=== PATIENT | female | born 1970 | race Caucasian/White ===

== ENCOUNTER 2025-09-02 06:00 | Day surgery (SDC) | payer OTHER, SELFPAY ==
[2025-08-31 09:36] LABS: Hematocrit 42.7 % (37-47); Hemoglobin 14.2 g/dL (12.0-15.0); Mean Corp Hgb Conc 33.3 g/dL (32-36); Mean Corpuscular Volume 89.0 fL (81-99); Mean Platelet Vol. 10.7 fl (6.2-12.0); Platelet Count 325 K/mm3 (150-450); RBC Distribution Width CV 13.0 % (11.6-14.6); RBC Distribution Width SD 42.4 fl (35.1-43.9); Red Blood Count 4.80 M/mm3 (4.2-5.4); White Blood Count 6.7 K/mm3 (4.4-11.0)
[2025-08-31 10:22] LABS: Anion Gap 10 (5-15); BUN 12 mg/dL (4-19); BUN/Creat Ratio 22.6 RATIO (10-20); Calcium,Total 9.4 mg/dL (7.6-11.0); Carbon Dioxide 26.0 mmol/L (21.0-32.0); Chloride 106 mmol/L (98-108); Glucose 92 mg/dL (70-99); Potassium 4.2 mmol/L (3.3-5.1)
[2025-09-02] VITALS (7 sets, daily range): BP systolic 100–138; BP diastolic 59–67; PULSE 71–77; RESP 16–18; TEMP 36.3–36.9; O2SAT 93–98; BMI 27.7
--- OUTSIDE RECORDS SUMMARY | 2025-09-02 06:06 | XMS RPT_ITS | CCD ---
Author Organization [facility] Inform ion Partnership [facility] Care Team Providers Care Industrial Sewer Name Role Phone Unavailable Primary Care Provider Unavailmaxine e SHERIDAN NIÑO Referring Unavailable NIÑO, AMY Attending Unavailable JAMSYNE SHERIDAN Referring Unavailable NEYDENVERT KIMBERLY TO Attending Unavail able SHERIDAN NIÑO Attending Unavailable NIÑO, SHERIDAN Referring Unavailable Neyhart-To, Kimberly Referring Unavail able Neyhart-To, Kimberly Attending Unavail able Care Physician, No Primary Primary Care Unava ilable Medications Current Medications Medication Drug Class(es) Dates Sig (Normalized) Sig (Original) cholecalciferol 0.01 mg oral capsule (10 sources) Vitamin D take 1 capsule by mouth once daily cholecalciferol, vitamin D3, (VITAMIN D-3) 10 mcg (400 unit) cap Take 400 Units by mouth once daily. Active Comment on above: Take 400 Units by mo ut once daily. clindamycin 10 mg/ml topical lotion (9 sources) Lincosamide Antibacterial Start: 09-12-2023 Clindamycin Phosphate (CLEOCIN T) 1 % lotion apply to full face TWICE DAILY 09/12/2023 Active Comment on above: apply to full face T WICE DAILY dapsone 0.05 mg/mg topical gel (9 sources) Sulfone Start: 09-12-2023 Dapsone 5 % gel apply to entire face IN THE MORNING and IN THE EVENING 09/12/2023 Active Comment on above: apply to entire face IN THE MORNING and IN THE EVENING Multivitamin capsule (10 sources) take 1 capsule by mouth once daily Multivitamin capsule Take 1 capsule by mouth once daily. Active take 1 capsule by mouth once tristan ly Multivitamin capsule Take 1 capsule by mouth once daily. 0 Active Comment on above: Take 1 capsule by mo uth once daily. nitrofurantoin, macrocrystals 25 mg / nitrofurantoin, monohydrate 75 mg oral capsule (2 sources) Nitrofuran Antibacterial Start: 12-29-19 End: 01-05-20 take 1 capsule by mouth twice daily nitrofurantoin monohydrate and macrocrystal (MACROBID) 100 mg capsule Take 1 capsule by mouth two times a day for 7 days. 14 capsule 0 12/29/2023 01/05/2024 Active Start: 07-26-2022 End: 07-31-2022 take 1 capsule by mouth twice daily nitrofurantoin monohydrate and macrocrystal (MACROBID) 100 mg capsule Indications: Acute cystitis without hematuria Take 1 capsule by mouth twice daily for 5 days. 10 capsule 0 07/26/2022 07/31/2022 Active Comment on above: Take 1 capsule by mo uth twice daily for 5 days. Take 1 capsule by mo uth two times a day for 7 days. Completed/Discontinued Medications Medication Drug Class(es) Dates Sig (Normalized) Sig (Original) miSOPROStol 0.2 mg oral tablet (2 sources) Prostaglandin E1 Analog Start: 06-22-2025 End: 07-28-2025 miSOPROStol (CYTOTEC) 200 mcg tablet Indications: Thickened endometrium Insert 2 tablets vaginally night prior to procedure and 2 tablets morning of procedure. Each dose should be in vagina for 6-8 hours. 4 tablet 06/22/2025 07/28/2025 Discontinued Problems Active Problems Problem Classification Problem Date Documented Date Episodic/Chronic Benign neoplasm of uterus (1 source) Leiomyoma of uterus, unspecified; Translations: [Uterine leiomyoma, unspecified location] Onset: 08-24-2025 Episodic Genitourinary symptoms and ill-defined conditions (2 sources) Blood in urine; Translations: [Hematuria, unspecified] Onset: 06-08-2025 06-08-2025 Episodic Immunizations and screening for infectious disease (6 sources) Patient encounter status; Translations: [Encounter for screening for human papillomavirus (HPV)] Onset: 06-08-2025 06-08-2025 Episodic Nonmalignant breast conditions (2 sources) Breast finding ; Translations: [Dense breast tissue] 06-08-2025 Episodic Other female genital disorders (1 source) Dysplasia of cervix; Translations: [Dysplasia of cervix uteri, unspecified] 01-19-2024 Episodic Other female genital disorders (1 source) Stricture and stenosis of cervix uteri; Translations: [Cervical stenosis (uterine cervix)] Onset: 08-24-2025 Episodic Other screening for suspected conditions (not mental disorders or infectious disease) (5 sources) Endometrium thickened; Translations: [Abnormal findings on diagnostic imaging of other specified body structures] Onset: 07-28-2025 06-22-2025 Chronic Other screening for suspected conditions (not mental disorders or infectious disease) (3 sources) Encounter for screening for malignant neoplasm of cervix; Translations: [Encounter for screening mammogram for malignant neoplasm of breast] Onset: 06-08-2025 Episodic Ovarian cyst (6 sources) Cyst of left ovary; Translations: [Unspecified ovarian cyst, left side] Onset: 06-17-2025 06-08-2025 Episodic Unclassified (2 sources) Patient encounter status 06-08-2025 Unclassified (1 source) Breast finding 06-08-2025 Unclassified (1 source) Dense breast tissue; Translations: [Dense breast tissue] Onset: 06-08-2025 Urinary tract infections (1 source) Acute cystitis; Translations: [Acute cystitis without hematuria] Episodic Past or Other Problems Problem Classification Problem Date Documented Da te Episodic/Chronic Other female genital disorders (6 sources) Abnormal uterine bleeding; Translations: [Abnormal uterine and vaginal bleeding, unspecified] Onset: 07-18-2014 Resolved: 10-22-2017 10-22-2017 Chronic Results Test Name Value Interpretation Reference Range Facility [facility] 08-24-2025 CNOV Office Visit (OBGYWM ) FLETCHER GIMENEZ ([id number]) 1970 F Date Time Provider Department 08/24/25 2:00 PM KIMBERLY BARBOZA OBGYWM During your visit today, we recorded the following information about you: Pulse Blood pressure Weight Height 96/minute 120/72 72.8 kg 1.6 m Kimberly Barboza MD 08/24/2025 2:11 PM Signed Pre-Op History and Physical HPI: The patient is a 55 year old female presenting for pre-operative visit. She is scheduled for Hysteroscopy [facility], for thickened endometrium, stenotic cervix on 09/02/25. Procedure discussed along with risks, benefits and complications. Other alternatives discussed for management. Consent form signed? Yes. PAST MEDICAL HISTORY Diagnosis Date Cervical high risk HPV (human papillomavirus) test positive 12/10/2023 Ovarian cyst Uterine fibroid PAST SURGICAL HISTORY Procedure Laterality Date CERVIX UTERI CONIZA LP ELCTRO EXCI 12/31/2023 COLPOSCOPY CERVIX VAG LOOP ELTRD BX CERVIX 12/22/2023 VAGINOSCOPY 12/2023 Current Outpatient Medications Medication Sig Dispense Refill Dapsone 5 % gel apply to entire face IN THE MORNING and IN THE EVENING Clindamycin Phosphate (CLEOCIN T) 1 % lotion apply to full face TWICE DAILY cholecalciferol, vitamin D3, (VITAMIN D-3) 10 mcg (400 unit) cap Take 400 Units by mouth once daily. Multivitamin capsule Take 1 capsule by mouth once daily. No current facility-administered medications for this visit. ALLERGIES: Patient has no known allergies. PERSONAL HISTORY: SOCIAL HISTORY[1] FAMILY HISTORY: FAMILY HISTORY Problem Relation Age of Onset other (Hypotension) Mother other (Melanoma) Mother 03/2017 Hypertension Father other (ALS) Father Melanoma Father other (benign uterine tumor) Sister No Known Problems Brother REVIEW OF SYMPTOMS: negative except as noted above PHYSICAL EXAMINATION: VITALS: Blood pressure 120/72, pulse 96, height 160 cm (5' 3), weight 72.8 kg (160 lb 9.6 oz), last menstrual period 11/19/2020, SpO2 98%. GENERAL: The patient is well nourished, well hydrated in no acute distress. , The patient is oriented to time, place, and person. NECK: full range of motion LUNGS: Clear to auscultation bilaterally. no wheezes, rhonchi or rales HEART: Regular rate and rhythm, Normal heart sounds, and No murmurs or gallops IMPRESSION: 55yo with thickened endometrium, Stenotic cerix PLAN: Hysteroscopy [facility] Pt has been counseled on risks/benefits and alternatives of surgery including but not limited to anesthesia, bleeding, infection, uterine perforation with subsequent injury to pelvic structures including bowel, bladder, ureters and vessels. Pt wishes to proceed with surgery at this time. Pre and post op instructions I have reviewed and updated past medical and surgical history, medications and allergies Kimberly To MD Medical Decision Making: Problems: Moderate: New problem with uncertain prognosis Risk: Moderate: Decision on minor surgery w/ risk factors Medical Decision Making Level: 4 - Moderate [1] Social History Tobacco Use Smoking status: Never Smokeless tobacco: Never Vaping Use Vaping status: Never Used Substance Use Topics Alcohol use: Never Comment: Rarely Drug use: No Allergies As of Date: 08/24/2025 (No Known Allergies) Date Reviewed: 08/24/2025 Reviewed by: Nadine Alvarenga MA - Fully Assessed Reason for Visit: Pre-Op Visit [1235] Primary Visit Diagnosis:Thickened endometrium [R93.89] Other Visit Diagnoses:Cervical stenosis (uterine cervix) [N88.2] Uterine leiomyoma, unspecified location [D25.9] Pre-op exam [Z01.818] Prescriptions as of 08/24/2025 - Dapsone 5 % gel apply to entire face IN THE MORNING and IN THE EVENING - Clindamycin Phosphate (CLEOCIN T) 1 % lotion apply to full face TWICE DAILY - cholecalciferol, vitamin D3, (VITAMIN D-3) 10 mcg (400 unit) cap Take 400 Units by mouth once daily. - Multivitamin capsule Take 1 capsule by mouth once daily. Problem List As Of Date 08/24/2025 Noted Resolved Abnormal uterine bleeding [N93.9] 07/18/2014 10/22/2017 Encounter Status:Closed by KIMBERLY TO on 08/24/25 [facility] HISTORY PHYSICALon HISTORY PHYSICAL HNO ID: [id number] Author: KIMBERLY BARBOZA MD Service: ? Author Type: Physician Type: H&P Filed: 08/24/2025 14:11 Note Text: Pre-Op History and Physical HPI: The patient is a 55 year old female presenting for pre-operative visit. She is scheduled for Hysteroscopy [facility], for thickened endometrium, stenotic cervix on 09/02/25. Procedure discussed along with risks, benefits and complications. Other alternatives discussed for management. Consent form signed? Yes. PAST MEDICAL HISTORY Diagnosis Date Cervical high risk HPV (human papillomavirus) test positive 12/10/2023 Ovarian cyst Uterine fibroid PAST SURGICAL HISTORY Procedure Laterality Date CERVIX UTERI CONIZA LP ELCTRO EXCI 12/31/2023 COLPOSCOPY CERVIX VAG LOOP ELTRD BX CERVIX 12/22/2023 VAGINOSCOPY 12/2023 Current Outpatient Medications Medication Sig Dispense Refill Dapsone 5 % gel apply to entire face IN THE MORNING and IN THE EVENING Clindamycin Phosphate (CLEOCIN T) 1 % lotion apply to full face TWICE DAILY cholecalciferol, vitamin D3, (VITAMIN D-3) 10 mcg (400 unit) cap Take 400 Units by mouth once daily. Multivitamin capsule Take 1 capsule by mouth once daily. No current facility-administered medications for this visit. ALLERGIES: Patient has no known allergies. PERSONAL HISTORY: SOCIAL HISTORY[1] FAMILY HISTORY: FAMILY HISTORY Problem Relation Age of Onset other (Hypotension) Mother other (Melanoma) Mother 03/2017 Hypertension Father other (ALS) Father Melanoma Father other (benign uterine tumor) Sister No Known Problems Brother REVIEW OF SYMPTOMS: negative except as noted above PHYSICAL EXAMINATION: VITALS: Blood pressure 120/72, pulse 96, height 160 cm (5' 3), weight 72.8 kg (160 lb 9.6 oz), last menstrual period 11/19/2020, SpO2 98%. GENERAL: The patient is well nourished, well hydrated in no acute distress. , The patient is oriented to time, place, and person. NECK: full range of motion LUNGS: Clear to auscultation bilaterally. no wheezes, rhonchi or rales HEART: Regular rate and rhythm, Normal heart sounds, and No murmurs or gallops IMPRESSION: 55yo with thickened endometrium, Stenotic cerix PLAN: Hysteroscopy [facility] Pt has been counseled on risks/benefits and alternatives of surgery including but not limited to anesthesia, bleeding, infection, uterine perforation with subsequent injury to pelvic structures including bowel, bladder, ureters and vessels. Pt wishes to proceed with surgery at this time. Pre and post op instructions I have reviewed and updated past medical and surgical history, medications and allergies Kimberly To MD Medical Decision Making: Problems: Moderate: New problem with uncertain prognosis Risk: Moderate: Decision on minor surgery w/ risk factors Medical Decision Making Level: 4 - Moderate [1] Social History Tobacco Use Smoking status: Never Smokeless tobacco: Never Vaping Use Vaping status: Never Used Substance Use Topics Alcohol use: Never Comment: Rarely Drug use: No [facility] CNOVon 07-28-2025 CNOV Office Visit (OBGYWM ) FLETCHER GIMENEZ ([id number]) 1970 F Date Time Provider Department 07/28/25 3:00 PM SHERIDAN NIÑO OBGYWM During your visit today, we recorded the following information about you: Blood pressure Weight 134/69 72.1 kg Sheridan Niño APRN.CNP 08/02/2025 8:50 PM 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 Whitman is a 55 year old who presents today for an endometrial biopsy for thickening of endometrial lining on ultrasound test: n/a UNIVERSAL PROTOCOL / SAFETY CHECKLIST Procedure to be Performed: Endometrial Biopsy Sign In: A Moment of CARE was completed. Appropriate PPE (Personal Protective Equipment) worn by all providers involved with the procedure. Special equipment utilized tenaculum. Patient/Surrogate Stated/Verified: Patient name, Date of , Relevant allergies, and The intended procedure Time Out: Relevant labs, photos, and/or imaging studies have been reviewed. Intended patient and procedure match the source document(s) (e.g. consent, HANDP, associated studies [imaging, pathology]) match the intended patient and procedure. Consent obtained and matches the intended procedure. Yes. Correct side/site is not applicable. Medications required for this procedure are verified. are not applicable. Fire risk assessed and is not applicable. Implants: are not applicable. Sign Out: Specimens not collected. All instruments, equipment, possible retained foreign bodies are accounted for. Yes. The post-procedure plan of care has been communicated to the patient or surrogate. PROCEDURE: EXTERNAL GENITALIA: Normal in appearance without lesions VAGINA: Normal in appearance without lesions BIOPSY: Speculum placed into the vagina with excellent visualization of the cervix. Cervix cleaned with betadine. Anterior lip of cervix grasped with single toothed tenaculum. Stenotic cervical os. Unable to dilate os. No specimen collected. Procedure Summary: Patient tolerated procedure well. ASSESSMENT: thickening of endometrial lining on ultrasound PLAN: Post-procedure instructions reviewed and written material given to the patient. No specimen collected. Case discussed with Dr To. Recommendation for hysteroscopy [facility]. Message left for pt to call office and surgical worksheet completed. Sheridan Niño APRN.Maco Samaniego LPN 07/28/2025 2:55 PM Signed YOUR RECOVERY After your biopsy you may have: Vaginal bleeding (less than a normal menstrual period) Mild cramping Do NOT put anything in the vagina for 1 week after your endometrial biopsy. This includes: tampons douches and refraining from having sexual intercourse If you have any discomfort, you may take an over the counter pain medication (motrin, advil, ibuprofen, tylenol, etc). If this does not relieve your discomfort, contact the office. It is okay to wear a sanitary pad until the discharge and spotting stops. RISKS Although problems seldom occur with endometrial biopsies, there can be some complications. You may feel faint during and shortly after the procedure as well as have some bleeding after the procedure. There is also a risk of infection after the procedure. These complications are rare and can be easily treated. You should contact you doctor is you have any of the following: Heavy bleeding (more than your normal period) Bleeding with clots Severe abdominal pain Fever (more than 100.4F) Foul smelling vaginal discharge RESULTS We will have the results of your biopsy in 1-2 weeks. If you do not hear the results of your biopsy after 2 weeks, please contact the office for the results. If you have any additional questions or concerns please do not hesitate to contact the office. Referring Provider: SHERIDAN NIÑO [[id number]] Allergies As of Date: 07/28/2025 (No Known Allergies) Date Reviewed: 07/28/2025 Reviewed by: Sheridan Niño APRN.SPRING FORMER MACHINE - Fully Assessed Reason for Visit: Endometrial Biopsy [7501] Primary Visit Diagnosis:Thickened endometrium [R93.89] Order(s):ENDOMETRIAL BIOPSY [[id number]] Order #: [id number] Prescriptions as of 08/02/2025 - Dapsone 5 % gel apply to entire face IN THE MORNING and IN THE EVENING - Clindamycin Phosphate (CLEOCIN T) 1 % lotion apply to full face TWICE DAILY - cholecalciferol, vitamin D3, (VITAMIN D-3) 10 mcg (400 unit) cap Take 400 Units by mouth once daily. - Multivitamin capsule Take 1 capsule by mouth once daily. Problem List As Of Date 07/28/2025 Noted Resolved Abnormal uterine bleeding [N93.9] 07/18/2014 10/22/2017 Other instructions from your clinician: YOUR RECOVERY After your biopsy you may have: Vaginal bleeding (less than a normal menstrual period) Mild cramping Do NOT put anything in the vagina for 1 week after your endometrial biopsy. This includes: tampons douches and refraining from having se (more content not included)... [facility] CNPNon 06-22-2025 RENNYN Telephone (OBGYWM) FLETCHER GIMENEZ ([id number]) 1970 F Date Time Provider Department 06/22/25 SHERIDAN NIÑO During your visit today, we recorded the following information about you: Sheridan Niño APRN.CNP 06/22/2025 4:13 PM Signed Patient notified per phone of follow-up pelvic ultrasound results -fibroid uterus, thickened endometrium measuring 6.8 mm, normal right ovary and left ovary containing 2 cysts as follows: One cyst is multilocular with smooth inner tomas/nonvascular septations and second cyst avascular with smooth borders with solid lesion or endometrioma. This is a change from ultrasound on 12/28/2023. Recommendations were endometrial sampling and follow-up ultrasound in 6 months for O RADS 3. All questions answered. EMB and vaginal Cytotec ordered. Sheridan Niño APRN.SPRING FORMER MACHINE Allergies As of Date: 06/22/2025 (No Known Allergies) Date Reviewed: 06/08/2025 Reviewed by: Sheridan Niño APRN.SPRING FORMER MACHINE - Fully Assessed Reason for Visit: Results [95] Orders [681] New Medication [4091] Primary Visit Diagnosis:Thickened endometrium [R93.89] Other Visit Diagnosis:Ovarian cyst, left [N83.202] Order(s):ENDOMETRIAL BIOPSY [[id number]] Order #: [id number] PELVIC US WHI [[id number]] Order #: [id number]: 1 FUTURE Prescriptions as of 08/05/2025 - Dapsone 5 % gel apply to entire face IN THE MORNING and IN THE EVENING - Clindamycin Phosphate (CLEOCIN T) 1 % lotion apply to full face TWICE DAILY - cholecalciferol, vitamin D3, (VITAMIN D-3) 10 mcg (400 unit) cap Take 400 Units by mouth once daily. - Multivitamin capsule Take 1 capsule by mouth once daily. Problem List As Of Date 06/22/2025 Noted Resolved Abnormal uterine bleeding [N93.9] 07/18/2014 10/22/2017 Prescriptions ordered this encounter Disp Refills Start End MISOPROSTOL 200 MCG TABLET 4 ta* 0 06/22/2025 07/28/2025 Sig: Insert 2 tablets vaginally night prior to procedure and 2 tablets morning of procedure. Each dose should be in vagina for 6-8 hours. Encounter Status:Closed by SHERIDAN INÑO on 06/22/25 [facility] US Pelvison 06-20-2025 Indication Follow-up on ovarian cyst. Follow-up on uterine fibroids Impression Anteverted fibroid uterus that measures 90 mm x 49 mm x 60 mm. The largest fibroids are described below. 1. Size 19 mm x 17 mm x 20 mm. Mean 18.6 mm. Vol 3.340 cm . Anterior. FIGO score: 3 - contacts endometrium; 100% intramural 2. Size 19 mm x 17 mm x 20 mm. Mean 18.6 mm. Vol 3.355 cm . Left mid. FIGO score: 2 - > or equal to 50% intramural 3. Size 19 mm x 20 mm x 20 mm. Mean 19.5 mm. Vol 3.865 cm . Fundal. FIGO score: 2 - > or equal to 50% intramural 4. Size 15 mm x 16 mm x 17 mm. Mean 16.1 mm. Vol 2.159 cm . Anterior. FIGO score: 5 - Subserous > or equal to 50% intramural Endometrium measures 6.8 mm which is abnormally thickened in menopause. Right ovary has a normal appearance and measures 16 mm x 17 mm x 14 mm. Left ovary measures 48 mm x 49 mm x 53 mm and contains two cysts. 1. Size 46 mm x 47 mm x 47 mm multilocular cyst with smooth inner tomas/non-vascular septations. 2. Size 18 mm x 17 mm x 14 mm avascular lesion with smooth borders and isoechoic appearance consistent with solid lesion or endometrioma. No adnexal masses were observed. There is no free fluid visualized in the peritoneal cavity. Comparison to ultrasound on 12/28/2023: Cyst with thin septations measuring 42 x 40 x 44 cm. No solid component (O-RADS 2). Cyst with non simple fluid measuring 23 x 15 x 20 mm. No solid component (O-RADS 2). Recommendations Recommend endometrial sampling and additional evaluation as clinically indicated. O-RADS 3 left ovarian lesions, follow up ultrasound is recommended in 6 months. 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 Postmenopausal: Postmenopausal Menopause 51 yrs Method Transabdominal, transvaginal, 3D ultrasound examination, Color Doppler examination Uterus Uterus: Visualized Uterus position: anteverted Description of uterine malformations: normally shaped Myometrium: heterogeneous Endometrium: thickened Cervix details: cystic lesions identified suggesting superficial Nabothian cysts Uterus length 90 mm Uterus width 60 mm Uterus height 49 mm Uterus Vol 137.2 cm Endometrial thickness, total 6.8 mm Uterine fibroid D1 19 mm Uterine fibroid D2 17 mm Uterine fibroid D3 20 mm Uterine fibroid mean 18.6 mm Uterine fibroid vol 3.340 cm Uterine fibroids findings: Anterior. FIGO score: 3 - contacts endometrium; 100% intramural Uterine fibroid D1 19 mm Uterine fibroid D2 17 mm Uterine fibroid D3 20 mm Uterine fibroid mean 18.6 mm Uterine fibroid vol 3.355 cm Uterine fibroids findings: Left mid. FIGO score: 2 - > or equal to 50% intramural Uterine fibroid D1 19 mm Uterine fibroid D2 20 mm Uterine fibroid D3 20 mm Uterine fibroid mean 19.5 mm Uterine fibroid vol 3.865 cm Uterine fibroids findings: Fundal. FIGO score: 2 - > or equal to 50% intramural Uterine fibroid D1 15 mm Uterine fibroid D2 16 mm Uterine fibroid D3 17 mm Uterine fibroid mean 16.1 mm Uterine fibroid vol 2.159 cm Uterine fibroids findings: Anterior. FIGO score: 5 - Subserous > or equal to 50% intramural Right Ovary Rt ovary: Visualized Rt ovary morphology: postmenopausal atrophic Rt ovary D1 16 mm Rt ovary D2 17 mm Rt ovary D3 14 mm Rt ovary Vol 2.1 cm Left Ovary Lt ovary: Visualized Lt ovary D1 48 mm Lt ovary D2 49 mm Lt ovary D3 53 mm Lt ovary Vol 65.4 cm Lt ovarian cyst(s): Cysts identified Lt ovarian cyst D1 46 mm Lt ovarian cyst D2 47 mm Lt ovarian cyst D3 47 mm Lt ovarian cyst mean 46.7 mm Lt ovarian cyst vol 53.205 cm Lt ovarian cyst findings: Multilocular cyst with smooth inner tomas/non-vascular septations Lt ovarian cyst D1 18 mm Lt ovarian cyst D2 17 mm Lt ovarian cyst D3 14 mm Lt ovarian cyst mean 16.3 mm Lt ovarian cyst vol 2.243 cm Lt ovarian cyst findings: Solid lesion, smooth borders, without vascularity Cul de Sac Visualized. no free fluid visualized Performed By: Angela Gutierrez RDMS Read By: Kely Workman M.D. MATERNAL MEDICINE [facility] AURELIA SCREENING W TOMOon 06-17 AURELIA SCREENING W DEEP * * *Final Report* * * DATE OF EXAM: Jun 17 2025 8:18AM [facility] 0582 - AURELIA SCREENING W DEEP / PROCEDURE REASON: multiple diagnoses * * * * Physician Interpretation * * * * RESULT: [place] [address] #[id number] - AURELIA SCREENING W DEEP HISTORY: 55 year-old patient presents for screening. Patient is asymptomatic in both breasts. Patient states no personal history of breast cancer. COMPARISON STUDIES: The present examination has been compared to prior imaging studies dated 10/22/2017 (mammogram), 11/19/2018 (mammogram), 07/25/2021 (mammogram) and 01/01/2024 (mammogram). MAMMOGRAM TECHNIQUE: The study was acquired using full field digital technology and interpreted from soft copy. Digital Breast Tomosynthesis (DBT) images were obtained and used to assist in the interpretation of this examination. MAMMOGRAM FINDINGS: The breasts are heterogeneously dense, which may obscure small masses. No suspicious masses, calcifications or other abnormalities are seen in either breast. There are no significant interval changes. IMPRESSION: There is no mammographic evidence of malignancy in either breast. Routine screening mammogram is recommended. Annual mammogram will be due in 1 year. BI-RADS Category 1: Negative RISK: Based on the Tyrer-Cuzick (TC) risk assessment model, this patient has a 9.7% lifetime risk of developing breast cancer, meaning they are at average risk for developing breast cancer. However, this is only an estimate based on available history provided on the patient's questionnaire. We encourage all patients to talk with their providers about these results, further recommendations for managing breast health, and appropriate supplemental screening options if the patient has dense breast tissue. Interpreting Radiologist: Annelise Hill M.D. Electronically signed on: 06/20/2025 Cook Taco: RICHARD Transcribe Date/Time: Jun 17 2025 8:05A Dictated by: ANNELISE HILL MD This examination was interpreted and the report reviewed and electronically signed by: ANNELISE HILL MD on Jun 20 2025 7:54AM EST [id number] [facility] US Pelvison 06-17-2025 Radiology Study observation (narrative) [facility] [place] [facility] CNOVon 06-08-2025 CNOV Office Visit (OBGYWM ) FLETCHER GIMENEZ ([id number]) 1970 F Date Time Provider Department 06/08/25 3:30 PM SHERIDAN NIÑO OBPAPOWCass During your visit today, we recorded the following information about you: Blood pressure Weight Height 120/71 72.1 kg 1.585 m Sheridan Niño APRN.SPRING FORMER MACHINE 06/08/2025 4:39 PM 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 Fletcher is a 55 year old who presents for an annual gynecologic exam without complaints. Postmenopausal: Yes since age 51 HRT use: No. Menopause symptoms: None Time with current partner: 33 years Number of lifetime partners: 3 control frequency: Never HPV vaccine: No; Last pap smear: 12/10/2023 normal HPV: 12/10/2023 positive high risk other History of abnormal pap: Yes, history of abnormal PAP smears Leep biopsy: Yes: 12/31/2023 benign cervix and endocervix tissue Colposcopy 12/22/2023 benign ; ECC CIN2 Bothersome pelvic pain: No Last mammogram: 2023 normal dense History of abnormal mammogram: No OB History Gravida2 Para2 Term0 Preterm0 AB0 Living2 SAB0 IAB0 Ectopic0 Multiple0 Live Births0 Dampener History LMP: 11/19/2020, Postmenopausal Age at Menarche: 8 Age at First : Age at Menopause: Dampener History Comments: Sexual Activity: Yes; Male; had vasectomy Contraception: Vasectomy PAST MEDICAL HISTORY Diagnosis Date Cervical high risk HPV (human papillomavirus) test positive 12/10/2023 PAST SURGICAL HISTORY Procedure Laterality Date VAGINOSCOPY 12/2023 FAMILY HISTORY Problem Relation Age of Onset other (Hypotension) Mother other (Melanoma) Mother 03/2017 Hypertension Father other (ALS) Father Melanoma Father other (benign uterine tumor) Sister No Known Problems Brother SOCIAL HISTORY Social History Tobacco Use Smoking status: Never Smokeless tobacco: Never Vaping Use Vaping status: Never Used Substance Use Topics Alcohol use: Never Comment: Rarely Drug use: No REVIEW OF SYSTEMS Abdomen: No abdominal pain, nausea, vomiting, diarrhea, or constipation. No bloating, early satiety, indigestion, or increased flatulence. Bladder: No dysuria, gross hematuria, urinary frequency, urinary urgency, or incontinence Breast: No breast lumps, nipple d/c, overlying skin changes, redness or skin retraction Allergies and current medication updated:Yes SENSITIVE EXAM: The sensitive examination was discussed with the Patient or Patient's Authorized Home Service Director. As applicable, any other physician, advance practice provider, medical student, or other health professional student that will be observing or involved in the sensitive examination for educational or training purposes was discussed with the Patient or Authorized Home Service Director. The Patient or Authorized Home Service Director has agreed to proceed with the sensitive examination. (Sensitive examination includes inspection and/or palpation of the breasts, pelvis, prostate and anorectal regions). EXAM: BP 120/71 Ht 5' 2.402 (1.59m) Wt 159 lb (72.1kg) LMP 11/19/2020 BMI 28.71 kg/(m2). GENERAL: pleasant, female in no apparent distress HEENT: Normocephalic, atraumatic, mucus membranes moist, and no lesions NECK: Supple, full range of motion, no adenopathy, and thyroid normal DERMATOLOGY: Normal, without lesions, non-icteric, and non-hirsute BREAST: soft, non-tender, symmetric, no dominant mass, normal nipple-areolar complex, no lymphadenopathy, and no nipple discharge CHEST: Normal inspiratory effort ABDOMEN: soft, non-tender, and no masses PELVIC: external genitalia normal, normal Bartholin's glands, urethra, Hoxie's glands, no vulvar lesions, no cervical lesions, good vaginal support, physiologic discharge present, normal appearing perineal body and perianal region BIMANUAL: uterus normal size, shape and consistency, no adnexal masses, and non-tender RECTOVAGINAL: deferred. NEURO: alert and oriented x3,exam grossly non-focal EXTREMITIES: normal ASSESSMENT/PLAN: 1) Health maintenance: Pap/HPV up to date. - Discussed patient's medical history, including previous LEEP procedure and current medications. - No current symptoms of pelvic pain or stress incontinence. Mammogram ordered Mammogram up to date Nutrition, exercise and routine health maintenance exams reviewed. Calcium/Vitamin D supplementation information provided. Colon cancer screening: Cologuard ordered 2. Ovarian cyst, left (N83.202) - Previous pelvic ultrasound in December 2023 showed a benign-appearing left ovarian cyst with thin septation, classified as O-RADS 2. - Ordered repeat pelvic ultrasound to monitor the cyst. - Patient to schedule the ultrasound before leaving today. 3. Hematuria, unspecified type (R31.9) - Urinalysis today showed trace hematuria and ketones, indicating possible dehydration. - Previous urinalysis on January 19 showed (more content not included)... [facility] HIGH RISK HUMAN PAPILLOMA ISA (HPV), PCR FOR DETECTION AND GENOTYPINGon 06-08-2025 HPV 16 Ag Ql (Unsp spec) Not detected Normal Not detected [facility] Comment on above: Order Comment: Speci men Type: FLUID SPECIMEN Ordering Facility: [facility] Address: [address] [place] [address] Performed By: #### H PVHRT #### [facility] CLIA [id number] [address] [place] [address] [place] HPV 18 Ag Ql (Unsp spec) Not detected Normal Not detected [facility] Comment on above: Order Comment: Speci men Type: FLUID SPECIMEN Ordering Facility: [facility] Address: [address] [place] [address] Performed By: #### H PVHRT #### [facility] CLIA [id number] [address] [place] [address] [place] HPV 31+33+35+39+45+51+52 +56+58+59+66+68 DNA PRASANNA+probe Ql (Cvx) Not detected Normal Not detected [facility] Comment on above: Order Comment: Speci men Type: FLUID SPECIMEN Ordering Facility: [facility] Address: [address] [place] [address] Result Comment: High Risk HPV Other Type includes HPV types 31, 33, 35, 39, 45, 51, 52, 56, 58, 59, 66 and 68. Performed By: #### H PVHRT #### [facility] CLIA [id number] [address] [place] [address] [place] PAP TESTon 06-08-2025 ADEQUACY Satisfactory for interpretation. [facility] Comment on above: Order Comment: Speci men Type: FLUID SPECIMEN Ordering Facility: [facility] Address: [address] [place] [address] Performed By: #### L [id number] #### [facility] CLIA [id number] [address] [place] [address] [place] CASE REPORT [facility] Comment on above: Order Comment: Speci men Type: FLUID SPECIMEN Ordering Facility: [facility] Address: [address] [place] [address] Result Comment: Gyne cologic Cytology Report Case: [id number] Authorizing Provider: Sheridan Niño APRN.SPRING FORMER MACHINE Collected: 06/08/2025 04:21 PM Ordering Location: OB/Gynecology Received: 06/09/2025 07:22 AM First Screen: Gisel Bradley, CT, ASCP Rescreen: Delmis Wallace, CT, ASCP Specimen: Pap Test, ThinPrep, Cervix Performed By: #### L [id number] #### [facility] CLIA [id number] [address] [place] [address] [place] CLINICAL HISTORY, CYTOLOGY, ENTERPRISE DATA ARCHITECT Post Menopausal [facility] Comment on above: Order Comment: Speci men Type: FLUID SPECIMEN Ordering Facility: [facility] Address: [address] [place] [address] Result Comment: Prev ious LEEP Previous Abnormal Pap Performed By: #### L [id number] #### [facility] CLIA [id number] [address] [place] [address] [place] CYTOLOGY PAP OTHER INTERPRETATION Atrophic specimen. [facility] Comment on above: Order Comment: Speci men Type: FLUID SPECIMEN Ordering Facility: [facility] Address: [address] [place] [address] Performed By: #### L [id number] #### [facility] CLIA [id number] [address] [place] [address] [place] FINAL PERFORMING LAB Normal [facility] Comment on above: Order Comment: Speci men Type: FLUID SPECIMEN Ordering Facility: [facility] Address: [address] [place] [address] Result Comment: Tech nical component, k 8 school principal screening performed at: [facility], [address] [place] [address] CLIA: [id number] Diagnostic interpretation performed at: [facility], [address] [place] [address] CLIA# [id number] Sales Manager [place]: Steven Love MD Performed By: #### L [id number] #### [facility] CLIA [id number] [address] [place], [place] [id number] [place] INTERPRETATION, CYTOLOGY, ENTERPRISE DATA ARCHITECT [facility] Comment on above: Order Comment: Speci men Type: FLUID SPECIMEN Ordering Facility: [facility] Address: [address] [place] [address] Result Comment: Nega tive for intraepithelial lesion or malignancy. at 1403 EDT Performed By: #### L [id number] #### [facility] CLIA [id number] [address] [place] [address] [place] PAP DISCLAIMER COMMENT The Pap Smear is a screening test for cervical cancer. False negative results occur with all screening tests, emphasizing the need for rescreening at recommended intervals, and clinical correlation. [facility] Comment on above: Order Comment: Speci men Type: FLUID SPECIMEN Ordering Facility: [facility] Address: [address] [place] [address] Performed By: #### L [id number] #### [facility] CLIA [id number] [address] [place] [address] [place] PAP GRAIN ELEVATOR MAN COMMENT This specimen has be en analyzed by the FDA-approved [employer]iosity[place]TM System, which uses digital imaging and an enhanced artificial intelligence image analysis algorithm to identify sol of interest on the microscopic slide, to assist the associate dean and pathologist in evaluating cells on ThinPrep Pap tests. Following analysis, sol of interest on the microscopic slide selected by the algorithm are reviewed by a associate dean. If a sample requires hierarchical review, the pathologist will review the same sol of interest selected by the algorithm prior to final interpretation. [facility] Comment on above: Order Comment: Speci men Type: FLUID SPECIMEN Ordering Facility: [facility] Address: [address] [place] [address] Performed By: #### L [id number] #### [facility] CLIA [id number] [address] [place], [place] [id number] [place] UA DIP, URINE (POC)on 2024 BILIRUBIN UA (POCT) Negative Negative [facility] CLARITY UA (POCT) Clear [facility] COLOR UA (POCT) Yellow [facility] GLUCOSE UA (POCT) Negative Negative mg/dL [facility] Hemoglobin Ql (U) Trace-intact Abnormal Negative [facility] Interpretation and review of laboratory results Abnormal [facility] KETONE UA (POCT) 40 mg/dL Abnormal Negative [facility] LEUKOCYTES UA (POCT) Negative Negative [facility] NITRITE UA (POCT) Negative Negative [facility] PH UA (POCT) 5.5 4.5 - 8.0 [facility] [place] [facility] Protein Ql (U) Negative Negative mg/dL [facility] SPECIFIC GRAVITY UA (POCT) 1.02 1.005 - 1.030 [facility] UROBILINOGEN UA (POCT) 0.2 Normal E.U./dL [facility] Location:[facility], [address], [place], [id number] [place] [address] POINT OF CARE [facility] UA DIP, URINE (POC)on 2023 BILIRUBIN UA (POCT) Negative Negative [facility] CLARITY UA (POCT) Clear [facility] nd [facility] COLOR UA (POCT) Yellow [facility] [place] [facility] GLUCOSE UA (POCT) Negative Negative mg/dL [facility] Hemoglobin Ql (U) Negative Negative [facility] KETONE UA (POCT) Negative Negative mg/dL [facility] LEUKOCYTES UA (POCT) Trace Abnormal Negative [facility] NITRITE UA (POCT) Negative Negative [facility] PH UA (POCT) 7.0 4.5 - 8.0 [facility] [place] [facility] Protein Ql (U) Negative Negative mg/dL [facility] SPECIFIC GRAVITY UA (POCT) 1.010 1.005 - 1.030 [facility] UROBILINOGEN UA (POCT) 0.2 E.U./dL Normal E.U./dL [facility] Vital Signs Date Time Vital Sign Value Performing Clinician Sanjay rice 07-28-2025 15:42-0400 Diastolic blood pressure 69 mm[Hg] Sheridan Niño APRN.SPRING FORMER MACHINE Work Phone: [facility] Comment on above: post emb 07-28-2025 15:42-0400 Systolic blood pressure 134 mm[Hg] Sheridan Niño SUPERVISOR KNITTING.SPRING FORMER MACHINE Work Phone: [facility] Comment on above: post emb 07-28-2025 14:58-0400 Body mass index (BMI) [Ratio] 28.71 kg/m2 Sheridan Mendozahrie SUPERVISOR KNITTING.SPRING FORMER MACHINE Work Phone: [facility] [place] [facility] 07-28-2025 14:58-0400 Body weight 72.12 kg Sheridan Mendozahrie SUPERVISOR KNITTING.SPRING FORMER MACHINE Work Phone: [facility] 06-08-2025 15:33-0400 Body height 158.5 cm Sheridan Niño SUPERVISOR KNITTING.SPRING FORMER MACHINE Work Phone: [facility] [place] [facility] 06-08-2025 15:33-0400 Body mass index (BMI) [Ratio] 28.71 kg/m2 Sheridan Niño SUPERVISOR KNITTING.SPRING FORMER MACHINE Work Phone: [facility] [place] [facility] 06-08-2025 15:33-0400 Body weight 72.12 kg Sheridan Niño SUPERVISOR KNITTING.SPRING FORMER MACHINE Work Phone: [facility] [place] [facility] 06-08-2025 15:33-0400 Diastolic blood pressure 71 mm[Hg] Sheridan Niño SUPERVISOR KNITTING.SPRING FORMER MACHINE Work Phone: [facility] 06-08-2025 15:33-0400 Systolic blood pressure 120 mm[Hg] Sheridan Mendzoahrie SUPERVISOR KNITTING.SPRING FORMER MACHINE Work Phone: [facility] 01-19-2024 08:11-0500 Body weight 72.03 kg Grey Venegas MD Work Phone: [facility] [place] [facility] 01-19-2024 08:11-0500 Diastolic blood pressure 66 mm[Hg] Grey Venegas MD Work Phone: [facility] [place] [facility] 01-19-2024 08:11-0500 Systolic blood pressure 110 mm[Hg] Grey Venegas MD Work Phone: [facility] [place] [facility] Encounters Encounter Date Encounter Type Care Provider Facility Start: 09-02-2025 ambulatory Kimberly Sainz Facility:[facility] Start: 08-26-2025 Encounter for other preprocedural examination Kimberly [facility] Start: 08-24-2025 End: 08-24-2025 ambulatory KIMBERLY MARIAH TO Facility:[facility] Start: 08-24-2025 Encounter for other preprocedural examination KIMBERLY MARIAH TO [facility] Start: 07-28-2025 End: 07-28-2025 Patient encounter procedure Sheridan Niño APRN.CNP Work Phone: OB/Gynecology Comment on above: Thickened endometriu m (Primary Dx) Start: 07-28-2025 End: 07-28-2025 ambulatory SHERIDAN NIÑO Facility:[facility] Start: 06-22-2025 End: 06-22-2025 Telephone encounter Sheridan Niño APRN.CNP Work Phone: OB/Gynecology Comment on above: Results; Orders; New Medication Start: 06-17-2025 End: 06-17-2025 ambulatory Turbo Operator [employer] Work Phone: OB/Gynecology Start: 06-17-2025 End: 06-17-2025 Patient encounter procedure Us Tech 1 [facility] OB/Gynecology Start: 06-17-2025 End: 06-17-2025 ambulatory SHERIDAN NIÑO Facility:[facility] Start: 06-17-2025 End: 06-17-2025 Patient encounter status [facility] Start: 06-17-2025 End: 06-17-2025 Subsequent hospital visit by physician Screen Mammo [facility] Comment on above: Encounter for gyneco logical examination (general) (routine) without abnormal findings [Z01.419] Start: 06-15-2025 End: 08-15-2025 Follow-up encounter Sheridan Niño APRN.CNP Work Phone: OB/Gynecology Start: 06-08-2025 End: 06-08-2025 Patient encounter procedure Sheridan Niño APRN.CNP Work Phone: OB/Gynecology Comment on above: Encounter for gyneco logical examination (general) (routine) without abnormal findings (Primary Dx); Ovarian cyst, left; Hematuria, unspecified type; Pap smear for cervical cancer screening; Encounter for screening mammogram for breast cancer; Encounter for screening for human papillomavirus (HPV); Dense breast tissue; Screen for colon cancer Start: 06-08-2025 End: 06-08-2025 Patient encounter status Sheridan Niño APRN.CNP Work Phone: [facility] [place] [facility] Work Phone: Start: 06-08-2025 End: 06-08-2025 ambulatory SHERIDAN NIÑO Facility:[facility] Start: 06-08-2025 Encounter for gynecological examination (general) (routine) without abnormal findings SHERIDAN NIÑO [facility] Start: 01-19-2024 End: 01-19-2024 Patient encounter procedure Grey Venegas MD Work Phone: OB/Gynecology Comment on above: Cervical dysplasia ( Primary Dx) Start: 01-07-2024 ambulatory Grey pereira MD Work Phone: OB/Gynecology Comment on above: result Start: 01-07-2024 E-mail encounter fro m caregiver Grey Venegas MD Work Phone: [facility] Start: 01-01-2024 Documentation procedure Mammog aileen Coordinator [facility] Start: 01-01-2024 Letter encounter Mammography Coordinator [facility] [place] [facility] Department Start: 07-26-2022 End: 07-26-2022 ambulatory Shi Manning APRN.CNP Work Phone: Telemedicine Comment on above: Acute cystitis witho ut hematuria (Primary Dx) Start: 07-26-2022 End: 07-26-2022 Telemedicine consultation with patient Shi Stoutmalachi CHILDS Work Phone: [facility] Procedures Date Procedure Procedure Detail Performing Clinician Start: 06-17-2025 Us pelvic nonobstetr ic real-time image complete Sheridan Niño APRN.CNP Work Phone: Start: 06-08-2025 Urnls dip stick/tabl et rgnt auto w/o microscopy Sheridan Niño APRN.CNP Work Phone: Start: 01-19-2024 Urnls dip stick/tabl et rgnt auto w/o microscopy Grey Venegas MD Work Phone: Start: 07-25-2021 Mammography Shi Salinas jonah HONEYCUTT.SPRING FORMER MACHINE Work Phone: Start: 07-19-2014 Lipid 1996 panel - S rosita or Plasma Mammography Coordinator Plan of Treatment Date Care Activity Detail Author Start: 07-16-2032 Urine microalbumin profile DTaP,Tdap,Td Vaccine (2 - Td or Tdap) [facility] [place] [facility] Start: 12-10-2028 Screening for malign ant neoplasm of cervix [facility] [place] [facility] Start: 06-27-2028 Screening for malign ant neoplasm of colon [facility] [place] [facility] Start: 12-26-2026 Diabetes Screening Diabetes Screenin g [facility] [place] [facility] Start: 06-17-2026 Screening for malign ant neoplasm of breast Mammogram Screening [facility] [place] [facility] Start: 06-08-2026 Screening for malign ant neoplasm of cervix Cervical Cancer Screening [facility] [place] [facility] Start: 12-23-2025 End: 06-22-2026 US Pelvis PELVIC [facility] Imaging Routine Ovarian cyst, left Expected: 12/23/2025, Expires: 06/22/2026 [facility] [place] [facility] Comment on above: Expected: 12/23/2025 , Expires: 06/22/2026 Start: 08-24-2025 End: 08-24-2025 Patient encounter procedure 08/24/2025 2:00 PM EDT Office Visit OB/Gynecology [address] [place] [address] Kimberly Barboza MD [address] [place] [address] surgery 09/02 OB/Gynecology Comment on above: surgery 09/02 Start: 08-01-2025 Influenza vaccination Influenza Vacc ine (#1) [facility] [place] [facility] Start: 06-17-2025 End: 06-17-2025 ambulatory 06/17/2025 9:30 AM EDT Procedure OB/Gynecology [address] [place] [id number] Remote, Tur[employer] [address] [place] [address] Ovarian cyst, left [N83.202] OB/Gynecology Comment on above: Ovarian cyst, left [ N83.202] Start: 06-17-2025 End: 06-17-2025 Patient encounter procedure 06/17/2025 8:10 AM EDT Appointment Mammogram [address] [place] [address] Encounter for gynecological examination (general) (routine) without abnormal findings [Z01.419]; Encounter for screening mammogram for breast cancer [Z12.31]; Dense breast tissue [R92.30] Mammogram Comment on above: Encounter for gyneco logical examination (general) (routine) without abnormal findings [Z01.419]; Encounter for screening mammogram for breast cancer [Z12.31]; Dense breast tissue [R92.30] Start: 06-08-2025 End: 06-08-2026 US Pelvis PELVIC US [facility] Anc Imaging Routine Ovarian cyst, left Expected: 06/08/2025, Expires: 06/08/2026 [facility] [place] [facility] Comment on above: Expected: 06/08/2025 , Expires: 06/08/2026 Start: 01-01-2025 Screening for malign ant neoplasm of breast Mammogram Screening [facility] [place] [facility] Start: 12-10-2024 Screening for malign ant neoplasm of cervix Cervical Cancer Screening [facility] [place] [facility] Start: 08-01-2024 Covid-19 Vaccine () Covid-19 Vaccine () [facility] [place] [facility] Start: 12-01-2023 Depression Assessment Depression Ass essment [facility] [place] [facility] Start: 08-01-2023 Covid-19 Vaccine () Covid-19 Vaccine () [facility] [place] [facility] Start: 08-01-2023 Influenza vaccination Influenza Vacc ine (#1) [facility] [place] [facility] Start: 10-22-2022 HPV TESTING HPV TESTING [facility] [place] [facility] Start: 10-22-2022 PAP TESTING PAP TESTING [facility] [place] [facility] Start: 08-01-2022 Influenza vaccination INFLUENZA (#1) [facility] [place] [facility] Start: 07-25-2022 Mammography MAMMOGRAM [facility] [place] [facility] Start: 08-21-2021 COVID-19 VACCINE (3 - Booster for Moderna series) COVID-19 VACCINE (3 - Booster for Moderna series) [facility] [place] [facility] Start: 07-19-2019 Lipid panel Lipid Screening [facility] Start: 07-19-2019 LIPID SCREEN LIPID SCREEN [facility] [place] Start: 2018 Pneumococcal Vaccine : 50+ (1 of 1 - PCV) Pneumococcal Vaccine: 50+ (1 of 1 - PCV) [facility] [place] Start: 2018 SHINGRIX VACCINE (1 of 2) SHINGRIX VACCINE (1 of 2) [facility] [place] [facility] Start: 07-19-2017 DIABETES SCREEN [facility]EN [facility] [facility] Start: 2013 COLOGUARD (FIT-DNA) COLOGUARD (FIT-D NA) [facility] Start: 2013 Colonoscopy COLONOSCOPY [facility] Start: 2013 COLORECTAL CANCER SCREENING COLORECTAL CANCER SCREENING [facility] Start: [address] COLONOGRAPHY [facility] Start: 2013 FECAL OCCULT BLOOD FECAL OCCULT BLOO D [facility] Start: 2013 Screening for malign ant neoplasm of colon [facility] Start: 2013 SIGMOIDOSCOPY SIGMOIDOSCOPY [facility] Start: 1987 Hepatitis B Vaccine (1 of 3 - 19+ 3-dose series) Hepatitis B Vaccine (1 of 3 - 19+ 3-dose series) [facility] Start: 1987 Urine microalbumin profile DTAP,TDAP,TD (1 - Tdap) [facility] Start: 1986 Anxiety Screening Anxiety Screening [facility] Start: 1986 Depression Screening Depression Scre ening [facility] Start: 1986 HEPATITIS C SCREENING HEPATITIS C [facility] Start: 1986 Hepatitis C screening Hepatitis C [facility] Start: 1986 HIV SCREENING HIV SCREENING [facility] Start: 1986 HIV screening HIV Screening [facility] Start: 1980 Adult depression screening assessment DEPRESSION SCREENING [facility] Start: 1968 HEPATITIS B (1 of 3 - 3-dose series) HEPATITIS B (1 of 3 - 3-dose series) [facility] Start: 1968 Hepatitis B Vaccine (1 of 3 - 3-dose series) Hepatitis B Vaccine (1 of 3 - 3-dose series) [facility] COLOGUARD COLOGUARD Lab Evelyn mcelroy Screen for colon cancer Ordered: 06/08/2025 [facility] Comment on above: Ordered: 06/08/2025 End: 07-08-2026 DBT Breast - bilateral screening AURELIA SCREENING W DEEP Radiology Routine Encounter for gynecological examination (general) (routine) without abnormal findings Encounter for screening mammogram for breast cancer Dense breast tissue 1 Occurrences starting 06/08/2025 until 07/08/[address] [facility] Work Phone: Comment on above: 1 Occurrences starti ng 06/08/2025 until 07/08/2026 DBT Breast - bilater al screening AURELIA SCREENING W DEEP Radiology Routine Encounter for gynecological examination (general) (routine) without abnormal findings Encounter for screening mammogram for breast cancer Dense breast tissue 06/17/2025 8:18 AM EDT [facility] Work Phone: Endometrial bx w/wo endocervix bx w/o dilat spx ENDOMETRIAL BIOPSY Procedures Routine Thickened endometrium Ordered: 06/22/[address] [facility] Work Phone: Comment on above: Ordered: 06/22/2025 Endometrial bx w/wo endocervix bx w/o dilat spx ENDOMETRIAL BIOPSY Procedures Routine Thickened endometrium Ordered: 07/28/[address] [facility] Work Phone: Comment on above: Ordered: 07/28/2025 PAP TEST PAP TEST Lab Griselda gao Encounter for gynecological examination (general) (routine) without abnormal findings Encounter for screening for human papillomavirus (HPV) Pap smear for cervical cancer screening Ordered: 06/08/2025 [facility] Comment on above: Ordered: 06/08/2025 [facility] Immunizations Immunization Date Immunization Notes Care Provider Ruma ceja 09-14-2021 influenza virus vaccine, unspecified formulation Mammography Coordinator [facility] Payers Date Payer Category Payer Self-pay 2019 Private Health Insurance [employer] PPO [id number] 2019 Unknown [id number] 2019 Unknown [id number] Unknown [id number] Social History Date Type Detail Facility Start: 07-18-2014 End: 12-10-2023 Tobacco smoking status ILIS Never smoked tobacco [facility] Work Phone: Start: 07-18-2014 End: 12-10-2023 Tobacco use and exposure Smokeless tobacco non-user [facility] Work Phone: Start: 07-25-2021 End: 06-08-2025 Alcohol intake Lifetime non-drinker (finding) [facility] Start: 07-25-2021 History SDOH Alcohol Frequency 1 [facility] Start: 07-18-2014 History SDOH Alcohol Comment Rarely [facility] Start: 1970 Sex Assigned At Not on file [facility] Start: 12-25-2023 End: 12-31-2023 History of Social function [facility] Start: 12-25-2023 End: 12-31-2023 Tobacco use panel [facility] Start: 11-01-2012 National Score (1-10 0), lower number is lower risk 58 [facility] Functional Status Date Assessment Result Facility 07-29-2014 Are you deaf, or do you have serious difficulty hearing No 07/29/2014 10:14 AM Estefany Michael LPN No [facility] 07-29-2014 Are you blind, or do you have serious difficulty seeing, even when wearing glasses No 07/29/2014 10:14 AM EDT Estefany Claire LPN No [facility] 07-29-2014 Do you have serious difficulty walking or climbing stairs No 07/29/2014 10:14 AM EDT Estefany Claire LPN No [facility] 07-29-2014 Do you have difficul ty dressing or bathing No 07/29/2014 10:14 AM EDT Estefany Claire LPN No [facility] 07-29-2014 Because of a physica l, mental, or emotional condition, do you have difficulty doing errands alone such as visiting a physician's office or shopping No 07/29/2014 10:14 AM EDT Estefany Claire LPN No [facility] Mental Status Date Assessment Result Facility 07-29-2014 Because of a physica l, mental, or emotional condition, do you have serious difficulty concentrating, remembering, or making decisions No 07/29/2014 10:14 AM EDT Estefany Claire LPN No [facility] Clinical Notes 07-18-2014 to 07-28-2025 Patient InstructionsSheridan Niño APRN.[facility] - 07/28/2025 2:37 PM EDTTelephone Encounter - Sheridan Niño APRN.[facility] - 06/22/2025 4:05 PM Kely Shirley MD - 06/20/2025 1:24 PM EDT Note Date & Type Note Facility 07-28-2025 Instructions Maco Murphy LPN - 07/28/2025 2:55 PM EDT YOUR RECOVERY After your biopsy you may have: Vaginal bleeding (less than a normal menstrual period) Mild cramping Do NOT put anything in the vagina for 1 week after your endometrial biopsy. This includes: tampons douches and refraining from having sexual intercourse If you have any discomfort, you may take an over the counter pain medication (motrin, advil, ibuprofen, tylenol, etc). If this does not relieve your discomfort, contact the office. It is okay to wear a sanitary pad until the discharge and spotting stops. RISKS Although problems seldom occur with endometrial biopsies, there can be some complications. You may feel faint during and shortly after the procedure as well as have some bleeding after the procedure. There is also a risk of infection after the procedure. These complications are rare and can be easily treated. You should contact you doctor is you have any of the following: Heavy bleeding (more than your normal period) Bleeding with clots Severe abdominal pain Fever (more than 100.4F) Foul smelling vaginal discharge RESULTS We will have the results of your biopsy in 1-2 weeks. If you do not hear the results of your biopsy after 2 weeks, please contact the office for the results. If you have any additional questions or concerns please do not hesitate to contact the office. documented in this encounter [facility] 07-28-2025 Note HNO ID: [id number] Author: SHERIDAN NIÑO APRN.[employer] Service: ? Author Type: Nurse Practitioner Type: Progress Notes Filed: 08/02/2025 20:50 Note Text: Industrial Sweeper Cleaner offered: Patient declinesJackelin Whitman is a 55 year old who presents today for an endometrial biopsy for thickening of endometrial lining on ultrasound test: n/a UNIVERSAL PROTOCOL / SAFETY CHECKLIST Procedure to be Performed: Endometrial Biopsy Sign In: A Moment of CARE was completed. Appropriate PPE (Personal Protective Equipment) worn by all providers involved with the procedure. Special equipment utilized tenaculum. Patient/Surrogate Stated/Verified: Patient name, Date of , Relevant allergies, and The intended procedure Time Out: Relevant labs, photos, and/or imaging studies have been reviewed. Intended patient and procedure match the source document(s) (e.g. consent, HANDP, associated studies [imaging, pathology]) match the intended patient and procedure. Consent obtained and matches the intended procedure. Yes. Correct side/site is not applicable. Medications required for this procedure are verified. are not applicable. Fire risk assessed and is not applicable. Implants: are not applicable. Sign Out: Specimens not collected. All instruments, equipment, possible retained foreign bodies are accounted for. Yes. The post-procedure plan of care has been communicated to the patient or surrogate. PROCEDURE: EXTERNAL GENITALIA: Normal in appearance without lesions VAGINA: Normal in appearance without lesions BIOPSY: Speculum placed into the vagina with excellent visualization of the cervix. Cervix cleaned with betadine. Anterior lip of cervix grasped with single toothed tenaculum. Stenotic cervical os. Unable to dilate os. No specimen collected. Procedure Summary: Patient tolerated procedure well. ASSESSMENT: thickening of endometrial lining on ultrasound PLAN: Post-procedure instructions reviewed and written material given to the patient. No specimen collected. Case discussed with Dr To. Recommendation for hysteroscopy DANDC. Message left for pt to call office and surgical worksheet completed. Sheridan Niño APRN.[facility] 07-28-2025 History of Presen t illness Narrative Industrial 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 Fletcher is a 55 year old who presents today for an endometrial biopsy for thickening of endometrial lining on ultrasound test: n/a UNIVERSAL PROTOCOL / SAFETY CHECKLIST Procedure to be Performed: Endometrial Biopsy Sign In: A Moment of CARE was completed. Appropriate PPE (Personal Protective Equipment) worn by all providers involved with the procedure. Special equipment utilized tenaculum. Patient/Surrogate Stated/Verified: Patient name, Date of , Relevant allergies, and The intended procedure Time Out: Relevant labs, photos, and/or imaging studies have been reviewed. Intended patient and procedure match the source document(s) (e.g. consent, H&P, associated studies [imaging, pathology]) match the intended patient and procedure. Consent obtained and matches the intended procedure. Yes. Correct side/site is not applicable. Medications required for this procedure are verified. are not applicable. Fire risk assessed and is not applicable. Implants: are not applicable. Sign Out: Specimens not collected. All instruments, equipment, possible retained foreign bodies are accounted for. Yes. The post-procedure plan of care has been communicated to the patient or surrogate. PROCEDURE: EXTERNAL GENITALIA: Normal in appearance without lesions VAGINA: Normal in appearance without lesions BIOPSY: Speculum placed into the vagina with excellent visualization of the cervix. Cervix cleaned with betadine. Anterior lip of cervix grasped with single toothed tenaculum. Stenotic cervical os. Unable to dilate os. No specimen collected. Procedure Summary: Patient tolerated procedure well. ASSESSMENT: thickening of endometrial lining on ultrasound PLAN: Post-procedure instructions reviewed and written material given to the patient. No specimen collected. Case discussed with Dr To. Recommendation for hysteroscopy D&C. Message left for pt to call office and surgical worksheet completed. Sheridan Niño APRN.CNP documented in this encounter [facility] 06-22-2025 Telephone encounter Note Patient notified per phone of follow-up pelvic ultrasound results -fibroid uterus, thickened endometrium measuring 6.8 mm, normal right ovary and left ovary containing 2 cysts as follows: One cyst is multilocular with smooth inner tomas/nonvascular septations and second cyst avascular with smooth borders with solid lesion or endometrioma. This is a change from ultrasound on 12/28/2023. Recommendations were endometrial sampling and follow-up ultrasound in 6 months for O RADS 3. All questions answered. EMB and vaginal Cytotec ordered. Sheridan Niño APRN.CNP [facility] 06-22-2025 Miscellaneous Notes Patient notified per phone of follow-up pelvic ultrasound results -fibroid uterus, thickened endometrium measuring 6.8 mm, normal right ovary and left ovary containing 2 cysts as follows: One cyst is multilocular with smooth inner tomas/nonvascular septations and second cyst avascular with smooth borders with solid lesion or endometrioma. This is a change from ultrasound on 12/28/2023. Recommendations were endometrial sampling and follow-up ultrasound in 6 months for O RADS 3. All questions answered. EMB and vaginal Cytotec ordered. Sheridan Niño APRN.CNP documented in this encounter [facility] 06-20-2025 Note HNO ID: [id number] Author: KELY WORKMAN MD Service: ? Author Type: Physician Type: Progress Notes Filed: 06/20/2025 21:56 Note Text: Fletcher Gimenez is a 55 year old female who presented for loss prevention associate ultrasound today. Encounter Diagnosis ICD-10-CM 1. Ovarian cyst, left N83.202 Please see report under imaging tab. Kely Workman MD June 20, 2025 1:24 PM [facility] 06-20-2025 History of Presen t illness Narrative Fletcher Gimenez is a 55 year old female who presented for loss prevention associate ultrasound today. Encounter Diagnosis ICD-10-CM 1. Ovarian cyst, left N83.202 Please see report under imaging tab. Kely Workman MD June 20, 2025 1:24 PM documented in this encounter [facility] 06-17-2025 History of Presen t illness Narrative Radiology Service Progress Note PATIENT NAME: Fletcher Gimenez DATE OF SERVICE: June 17, 2025 TIME: 9:07 AM PATIENT IDENTITY VERIFICATION COMPLETED USING TWO (2) IDENTIFIERS: Name and Date of confirmed by patient verbally. FALL SCREENING: Has the patient had 2 falls in the last year or 1 fall with injury or currently using an Ambulatory Assistive Device (Walker, Cane, Wheelchair, Crutches, etc.)? No PATIENT GENDER DATA: Assigned female at . status: : No status: NO. PATIENT RELEVANT IMPLANT DATA REVIEWED: Not Applicable PATIENT PRESENTS WITH AN IMPLANTABLE OR ATTACHED RIVET DRIVER: No RADIOLOGY DEPARTMENT: Mammography PERIPHERAL IV DATA: Not applicable SIGNED BY: RT Pierre(Lali) June 17, 2025 9:07 AM documented in this encounter [facility] 06-17-2025 Note HNO ID: [id number] Author: IRA SCHERER RT(Lali) Service: ? Author Type: Technologist Type: Progress Notes Filed: 06/17/2025 09:08 Note Text: Radiology Service Progress Note PATIENT NAME: Fletcher Gimenez DATE OF SERVICE: June 17, 2025 TIME: 9:07 AM PATIENT IDENTITY VERIFICATION COMPLETED USING TWO (2) IDENTIFIERS: Name and Date of confirmed by patient verbally. FALL SCREENING: Has the patient had 2 falls in the last year or 1 fall with injury or currently using an Ambulatory Assistive Device (Walker, Cane, Wheelchair, Crutches, etc.)? No PATIENT GENDER DATA: Assigned female at . status: : No status: NO. PATIENT RELEVANT IMPLANT DATA REVIEWED: Not Applicable PATIENT PRESENTS WITH AN IMPLANTABLE OR ATTACHED RIVET DRIVER: No RADIOLOGY DEPARTMENT: Mammography PERIPHERAL IV DATA: Not applicable SIGNED BY: RT Pierre(R) June 17, 2025 9:07 AM [facility] 06-08-2025 History of Presen t illness Narrative Industrial 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 Fletcher is a 55 year old who presents for an annual gynecologic exam without complaints. Postmenopausal: Yes since age 51 HRT use: No. Menopause symptoms: None Time with current partner: 33 years Number of lifetime partners: 3 control frequency: Never HPV vaccine: No; Last pap smear: 12/10/2023 normal HPV: 12/10/2023 positive high risk other History of abnormal pap: Yes, history of abnormal PAP smears Leep biopsy: Yes: 12/31/2023 benign cervix and endocervix tissue Colposcopy 12/22/2023 benign ; ECC CIN2 Bothersome pelvic pain: No Last mammogram: 2023 normal dense History of abnormal mammogram: No OB History Gravida2 Para2 Term0 Preterm0 AB0 Living2 SAB0 IAB0 Ectopic0 Multiple0 Live Births0 Dampener History LMP: 11/19/2020, Postmenopausal Age at Menarche: 8 Age at First : Age at Menopause: Dampener History Comments: Sexual Activity: Yes; Male; had vasectomy Contraception: Vasectomy PAST MEDICAL HISTORY Diagnosis Date Cervical high risk HPV (human papillomavirus) test positive 12/10/2023 PAST SURGICAL HISTORY Procedure Laterality Date VAGINOSCOPY 12/2023 FAMILY HISTORY Problem Relation Age of Onset other (Hypotension) Mother other (Melanoma) Mother 03/2017 Hypertension Father other (ALS) Father Melanoma Father other (benign uterine tumor) Sister No Known Problems Brother SOCIAL HISTORY Social History Tobacco Use Smoking status: Never Smokeless tobacco: Never Vaping Use Vaping status: Never Used Substance Use Topics Alcohol use: Never Comment: Rarely Drug use: No REVIEW OF SYSTEMS Abdomen: No abdominal pain, nausea, vomiting, diarrhea, or constipation. No bloating, early satiety, indigestion, or increased flatulence. Bladder: No dysuria, gross hematuria, urinary frequency, urinary urgency, or incontinence Breast: No breast lumps, nipple d/c, overlying skin changes, redness or skin retraction Allergies and current medication updated:Yes SENSITIVE EXAM: The sensitive examination was discussed with the Patient or Patient's Authorized Home Service Director. As applicable, any other physician, advance practice provider, medical student, or other health professional student that will be observing or involved in the sensitive examination for educational or training purposes was discussed with the Patient or Authorized Home Service Director. The Patient or Authorized Home Service Director has agreed to proceed with the sensitive examination. (Sensitive examination includes inspection and/or palpation of the breasts, pelvis, prostate and anorectal regions). EXAM: BP 120/71 Ht 5' 2.402 (1.59m) Wt 159 lb (72.1kg) LMP 11/19/2020 BMI 28.71 kg/(m^2). GENERAL: pleasant, female in no apparent distress HEENT: Normocephalic, atraumatic, mucus membranes moist, and no lesions NECK: Supple, full range of motion, no adenopathy, and thyroid normal DERMATOLOGY: Normal, without lesions, non-icteric, and non-hirsute BREAST: soft, non-tender, symmetric, no dominant mass, normal nipple-areolar complex, no lymphadenopathy, and no nipple discharge CHEST: Normal inspiratory effort ABDOMEN: soft, non-tender, and no masses PELVIC: external genitalia normal, normal Bartholin's glands, urethra, Hoxie's glands, no vulvar lesions, no cervical lesions, good vaginal support, physiologic discharge present, normal appearing perineal body and perianal region BIMANUAL: uterus normal size, shape and consistency, no adnexal masses, and non-tender RECTOVAGINAL: deferred. NEURO: alert and oriented x3,exam grossly non-focal EXTREMITIES: normal ASSESSMENT/PLAN: 1) Health maintenance: Pap/HPV up to date. - Discussed patient's medical history, including previous LEEP procedure and current medications. - No current symptoms of pelvic pain or stress incontinence. Mammogram ordered Mammogram up to date Nutrition, exercise and routine health maintenance exams reviewed. Calcium/Vitamin D supplementation information provided. Colon cancer screening: Cologuard ordered 2. Ovarian cyst, left (N83.202) - Previous pelvic ultrasound in December 2023 showed a benign-appearing left ovarian cyst with thin septation, classified as O-RADS 2. - Ordered repeat pelvic ultrasound to monitor the cyst. - Patient to schedule the ultrasound before leaving today. 3. Hematuria, unspecified type (R31.9) - Urinalysis today showed trace hematuria and ketones, indicating possible dehydration. - Previous urinalysis on January 19 showed no blood. - Advised patient to increase fluid intake 4) Follow up one year or sooner as needed Sheridan Niño APRN.[employer] documented in this encounter [facility] 06-08-2025 Note HNO ID: [id number] Author: SHERIDAN NIÑO APRN.[facility] Service: ? Author Type: Nurse Practitioner Type: Progress Notes Filed: 06/08/2025 16:39 Note Text: Industrial 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 Fletcher is a 55 year old who presents for an annual gynecologic exam without complaints. Postmenopausal: Yes since age 51 HRT use: No. Menopause symptoms: None Time with current partner: 33 years Number of lifetime partners: 3 control frequency: Never HPV vaccine: No; Last pap smear: 12/10/2023 normal HPV: 12/10/2023 positive high risk other History of abnormal pap: Yes, history of abnormal PAP smears Leep biopsy: Yes: 12/31/2023 benign cervix and endocervix tissue Colposcopy 12/22/2023 benign ; ECC CIN2 Bothersome pelvic pain: No Last mammogram: 2023 normal dense History of abnormal mammogram: No OB History Gravida2 Para2 Term0 Preterm0 AB0 Living2 SAB0 IAB0 Ectopic0 Multiple0 Live Births0 Dampener History LMP: 11/19/2020, Postmenopausal Age at Menarche: 8 Age at First : Age at Menopause: Dampener History Comments: Sexual Activity: Yes; Male; had vasectomy Contraception: Vasectomy PAST MEDICAL HISTORY Diagnosis Date Cervical high risk HPV (human papillomavirus) test positive 12/10/2023 PAST SURGICAL HISTORY Procedure Laterality Date VAGINOSCOPY 12/2023 FAMILY HISTORY Problem Relation Age of Onset other (Hypotension) Mother other (Melanoma) Mother 03/2017 Hypertension Father other (ALS) Father Melanoma Father other (benign uterine tumor) Sister No Known Problems Brother SOCIAL HISTORY Social History Tobacco Use Smoking status: Never Smokeless tobacco: Never Vaping Use Vaping status: Never Used Substance Use Topics Alcohol use: Never Comment: Rarely Drug use: No REVIEW OF SYSTEMS Abdomen: No abdominal pain, nausea, vomiting, diarrhea, or constipation. No bloating, early satiety, indigestion, or increased flatulence. Bladder: No dysuria, gross hematuria, urinary frequency, urinary urgency, or incontinence Breast: No breast lumps, nipple d/c, overlying skin changes, redness or skin retraction Allergies and current medication updated:Yes SENSITIVE EXAM: The sensitive examination was discussed with the Patient or Patient's Authorized Home Service Director. As applicable, any other physician, advance practice provider, medical student, or other health professional student that will be observing or involved in the sensitive examination for educational or training purposes was discussed with the Patient or Authorized Home Service Director. The Patient or Authorized Home Service Director has agreed to proceed with the sensitive examination. (Sensitive examination includes inspection and/or palpation of the breasts, pelvis, prostate and anorectal regions). EXAM: BP 120/71 Ht 5' 2.402 (1.59m) Wt 159 lb (72.1kg) LMP 11/19/2020 BMI 28.71 kg/(m2). GENERAL: pleasant, female in no apparent distress HEENT: Normocephalic, atraumatic, mucus membranes moist, and no lesions NECK: Supple, full range of motion, no adenopathy, and thyroid normal DERMATOLOGY: Normal, without lesions, non-icteric, and non-hirsute BREAST: soft, non-tender, symmetric, no dominant mass, normal nipple-areolar complex, no lymphadenopathy, and no nipple discharge CHEST: Normal inspiratory effort ABDOMEN: soft, non-tender, and no masses PELVIC: external genitalia normal, normal Bartholin's glands, urethra, Hoxie's glands, no vulvar lesions, no cervical lesions, good vaginal support, physiologic discharge present, normal appearing perineal body and perianal region BIMANUAL: uterus normal size, shape and consistency, no adnexal masses, and non-tender RECTOVAGINAL: deferred. NEURO: alert and oriented x3,exam grossly non-focal EXTREMITIES: normal ASSESSMENT/PLAN: 1) Health maintenance: Pap/HPV up to date. - Discussed patient's medical history, including previous LEEP procedure and current medications. - No current symptoms of pelvic pain or stress incontinence. Mammogram ordered Mammogram up to date Nutrition, exercise and routine health maintenance exams reviewed. Calcium/Vitamin D supplementation information provided. Colon cancer screening: Cologuard ordered 2. Ovarian cyst, left (N83.202) - Previous pelvic ultrasound in December 2023 showed a benign-appearing left ovarian cyst with thin septation, classified as O-RADS 2. - Ordered repeat pelvic ultrasound to monitor the cyst. - Patient to schedule the ultrasound before leaving today. 3. Hematuria, unspecified type (R31.9) - Urinalysis today showed trace hematuria and ketones, indicating possible dehydration. - Previous urinalysis on January 19 showed no blood. - Advised patient to increase fluid intake 4) Follow up one year or sooner as needed Sheridan Niño APRN.[facility] 01-19-2024 History of Presen t illness Narrative Industrial Sweeper Cleaner offered: Patient accepts, visit chaperoned by Nikole Peng LPN. Fletcher Gimenez is a 53 year old female who presents for post-opoerative evaluation post leep. Pt w/o complaints and reports no bleeding . has not resumed intercourse.. HPI: as above OB History T0 L2 SAB0 IAB0 Ectopic0 Multiple0 Live Births0 Dampener History LMP: 11/19/2020, Postmenopausal Age at Menarche: Age at First : Age at Menopause: Dampener History Comments: Sexual Activity: Yes; Male; had vasectomy Contraception: Vasectomy PAST MEDICAL HISTORY Diagnosis Date Cervical high risk HPV (human papillomavirus) test positive 12/10/2023 PAST SURGICAL HISTORY Procedure Laterality Date VAGINOSCOPY 12/2023 FAMILY HISTORY Problem Relation Age of Onset other (Hypotension) Mother other (Melanoma) Mother 03/2017 Hypertension Father other (ALS) Father Melanoma Father other (benign uterine tumor) Sister No Known Problems Brother Social History Tobacco Use Smoking status: Never Smokeless tobacco: Never Vaping Use Vaping Use: Never used Substance Use Topics Alcohol use: Never Comment: Rarely Drug use: No Current Outpatient Medications Medication Sig Dapsone 5 % gel apply to entire face IN THE MORNING and IN THE EVENING Clindamycin Phosphate (CLEOCIN T) 1 % lotion apply to full face TWICE DAILY cholecalciferol, vitamin D3, (VITAMIN D-3) 10 mcg (400 unit) cap Take 400 Units by mouth once daily. Multivitamin capsule Take 1 capsule by mouth once daily. No current facility-administered medications for this visit. Allergies As of Date: 01/19/2024 (No Known Allergies) Fully Assessed 01/19/2024 REVIEW OF SYSTEMS Abdomen: No bloating, early satiety, indigestion, or increased flatulence. No abdominal pain, nausea, vomiting, diarrhea, or constipation. Bladder: No dysuria, gross hematuria, urinary frequency, urinary urgency, or incontinence. Breast: No breast lumps, nipple d/c, overlying skin changes, redness or skin retraction. Expanded ROS: N/A Allergies and current medication updated:Yes EXAM: BP 110/66 Wt 158 lb 12.8 oz (72.0kg) LMP 11/19/2020 GENERAL: pleasant, female in no apparent distress PELVIC: external genitalia normal, normal Bartholin's glands, urethra, Hoxie's glands, no vulvar lesions, no cervical lesions, good vaginal support, physiologic discharge present, normal appearing perineal body and perianal region, noting some granulation tisssue at the healing site. BIMANUAL: deferred ASSESSMENT AND PLAN: No diagnosis found. Path reviewed: FINAL DIAGNOSIS A. Cervix, cut at 11:00, LEEP: - Benign transformation zone tissue; specimen and margins are negative for high-grade squamous intraepithelial lesion (see comment). B. Endocervix, curettage: - Benign endocervical tissue. RTO 6 months for ongoing evaluation Grey Venegas MD documented in this encounter [facility] 01-01-2024 Miscellaneous Notes January 01, 2024 PID: [id number] Fletcher Gimenez [address] [place] [address] Dear Ms. Gimenez, We are pleased to inform you that the results of your recent breast imaging exam on 01/01/2024 are normal. Your mammogram demonstrates that you have dense breast tissue, which could hide abnormalities. Dense breast tissue, in and of itself, is a relatively common condition. Therefore, this information is not provided to cause undue concern; rather, it is to raise your awareness and promote discussion with your health care provider regarding the presence of dense breast tissue in addition to other risk factors. Early detection of cancer is very important. We also understand recommendations regarding breast cancer screening are controversial. Please discuss with your primary care provider which strategy is best for you and whether a mammogram is right for you. Your imaging studies and report will be kept on file at [facility] as part of your permanent medical record and are available for your continuing care. Thank you for allowing us to help in meeting your health care needs. Sincerely, Dr. Blas Interpreting Radiologist [facility] (Normal over 40) documented in this encounter [facility] 07-26-2022 Instructions Shi Manning APRN.[employer] - 07/26/2022 12:17 PM EDT Images from the original note were not included. Urinary Problem-When to Seek Help? Symptoms of a urinary problem may lead to a bladder infection. Women are at greater risk of a urinary tract infection than are men. Most urinary tract infections in women are caused by bacteria and involve the lower urinary tract including the bladder and urethra. Symptoms: Pain or burning when passing urine, urgency, frequency, blood in the urine, difficult emptying your bladder, and lower abdominal fullness or pressure. Common Causes: Sexual intercourse, menopause, constipation, uncontrolled diabetes, dehydration and feminine products such as tampons, and kidney stones. When to Get Help: Seek medical attention if you get frequent bladder infections, urinary concerns such as leakage, blood in the urine or frequent need to urinate. You may be recommended to get help from a specialist, such as a urologist. Diagnosis & Treatment: Lab testing may include: urinalysis, and urine culture that can be collected in the lab or walk-in clinic. Most bladder infections can easily be treated. A physician, nurse practitioner or physician after school program assistant may treat with a short course of an antibiotic. Delaying treatment can lead to worsening symptoms, like a kidney infection. Self-Care: Avoid a full bladder, bubble baths, bath oils, food and beverages that may irritate the bladder such as caffeine. Avoid spermicide foam and diaphragms Void before and after sexual intercourse Wipe front to back after using the bathroom. Stay hydrated Stop Smoking Follow-up Care: Follow up testing is not needed in healthy young women if symptoms resolve. documented in this encounter [facility] 07-26-2022 History of Presen t illness Narrative Telemedicine Visit - Distance Health Virtual Visit Note Patient seen on [employer] Online platform. Location of patient: [place] History of Present Illness Fletcher Gimenez is a 52 year old old female with a history of UTI symptoms for 4 days. 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 PAST MEDICAL HISTORY Diagnosis Date NEGATIVE MEDICAL HISTORY PAST SURGICAL HISTORY Procedure Laterality Date NONE FAMILY HISTORY Problem Relation Age of Onset other (Hypotension) Mother other (Melanoma) Mother 03/2017 Hypertension Father other (ALS) Father Melanoma Father Social History Tobacco Use Smoking status: Never Smokeless tobacco: Never Vaping Use Vaping Use: Never used Substance Use Topics Alcohol use: Never Comment: Rarely Drug use: No ALLERGIES No Known Allergies Current Outpatient Medications Medication Sig cholecalciferol, vitamin D3, (VITAMIN D-3) 10 mcg (400 unit) cap Take 400 Units by mouth once daily. Multivitamin capsule Take 1 capsule by mouth once daily. No current facility-administered medications for this visit. Video Exam (Examination performed via Video enabled technology) General Appearance: 52 year old yo female in NAD; not ill or toxic appearing Abdomen: non-tender by self palpation CVA Tenderness: non-tender bilaterally by self palpation ASSESSMENT/PLAN: 1. Acute cystitis without hematuria - ICD9: 595.0, ICD10: N30.00 - NITROFURANTOIN MONOHYDRATE & MACROCRYSTAL 100 MG ORAL CAP - Reviewed good bathroom hygiene; NO lotions, potions, bath bombs or bubble baths - Reviewed sxs that would warrant ED tx for possible kidney infection - Pt verbalized understanding - Red flags discussed for in person care and follow up - All questions answered Shi Manning APRN.CNP If you let us know who your primary care provider is, we will send them a notification of today s visit through our electronic medical records system. Since not all providers have access to our notifications, we strongly encourage you to share the following record of today s visit with your primary care provider at your next visit. This will help in providing you the best care. documented in this encounter [facility] 07-18-2014 History of Past i llness Narrative Problem Noted Date Resolved Date Abnormal uterine bleeding 07/18/20142016 documented as of this encounter (statuses as of 07/26/2022) [facility] History of Past illness Narrative* Problem Noted Date Diagnosed Date Resolved Date Abnormal uterine bleeding 07/18/2014 documented as of this encounter (statuses as of 01/03/2024) [facility] History of Past illness Narrative* Problem Noted Date Diagnosed Date Resolved Date Abnormal uterine bleeding 07/18/2014 documented as of this encounter (statuses as of 01/08/2024) [facility] History of Past illness Narrative* Problem Noted Date Diagnosed Date Resolved Date Abnormal uterine bleeding 07/18/2014 documented as of this encounter (statuses as of 01/19/2024) [facility] Diagnosis Acute cystitis without hematuria- Primary Acute cystitis [facility] Diagnosis Cervical dysplasia- Primary Dysplasia of cervix, unspecified [facility] Diagnosis Encounter for gynecological examination (general) (routine) without abnormal findings- Primary Ovarian cyst, left Other and unspecified ovarian cyst Hematuria, unspecified type Pap smear for cervical cancer screening Screening for malignant neoplasm of the cervix Encounter for screening mammogram for breast cancer Encounter for screening for human papillomavirus (HPV) Special screening examination for human papillomavirus (HPV) Dense breast tissue Screen for colon cancer Special screening for malignant neoplasms, colon [facility] Diagnosis Encounter for gynecological examination (general) (routine) without abnormal findings Encounter for screening mammogram for breast cancer Dense breast tissue [facility] Diagnosis Ovarian cyst, left Other and unspecified ovarian cyst [facility] Diagnosis Thickened endometrium- Primary Nonspecific (abnormal) findings on radiological and other examination of genitourinary organs Ovarian cyst, left Other and unspecified ovarian cyst [facility] Diagnosis Thickened endometrium- Primary Nonspecific (abnormal) findings on radiological and other examination of genitourinary organs documented in this encounter [facility] for visit Narrative* Diagnostic Procedure Only (Routine) - Closed Specialty Diagnoses / Procedures Referred By Silvia haider Referred To Contact [facility] Diagnoses Encounter for gynecological examination (general) (routine) without abnormal findings Encounter for screening mammogram for breast cancer Dense breast tissue Procedures AURELIA SCREENING W DEEP SCREENING DIGITAL BREAST TOMOSYNTHESIS BI SCREENING MAMMOGRAPHY BI 2-VIEW BREAST INC CAD Sheridan Niño APRN.[employer] [address] [place] [address] Phone: tel: fax: [facility] [address] [facility] [place] [address] Referral ID Status Reason Start Date Expiration Date V isits Requested Visits Authorized [id number] Closed Auto-Generate d Referral 06/08/2025 07/08/2026 [address] [facility] for visit Narrative* Diagnostic Procedure Only (Routine) - Closed Specialty Diagnoses / Procedures Referred By Silvia haider Referred To Contact [facility] Diagnoses Ovarian cyst, left Procedures PELVIC US WHI US PELVIC NONOBSTETRIC REAL-TIME IMAGE COMPLETE Sheridan Niño APRN.[employer] [address] [place] [address] Phone: tel: fax: [facility] [address] [place] [address] Referral ID Status Reason Start Date Expiration Date V isits Requested Visits Authorized [id number] Closed Auto-Generate d Referral 06/08/2025 06/08/2026 1 1 [facility] Summary Purpose Family History No Family History Records FoundNo Family History Records Found Advance Directives No Advanced Directives Records FoundNo Advanced Directives Records Found Additional Source Comments Source Comments (unrecognize d section and content) In the event this informatio n is protected by the Federal Confidentiality of Alcohol and Drug Abuse Patient Records regulations: The Federal rules restrict any use of the information to criminally investigate or prosecute any alcohol or drug abuse patient.[facility] event this information is protected by the Federal Confidentiality of Alcohol and Drug Abuse Patient Records regulations: The Federal rules restrict any use of the information to criminally investigate or prosecute any alcohol or drug abuse patient.[facility] the event this information is protected by the Federal Confidentiality of Alcohol and Drug Abuse Patient Records regulations: The Federal rules restrict any use of the information to criminally investigate or prosecute any alcohol or drug abuse patient.[facility] the event this information is protected by the Federal Confidentiality of Alcohol and Drug Abuse Patient Records regulations: The Federal rules restrict any use of the information to criminally investigate or prosecute any alcohol or drug abuse patient.[facility] the event this information is protected by the Federal Confidentiality of Alcohol and Drug Abuse Patient Records regulations: The Federal rules restrict any use of the information to criminally investigate or prosecute any alcohol or drug abuse patient.[facility] the event this information is protected by the Federal Confidentiality of Alcohol and Drug Abuse Patient Records regulations: The Federal rules restrict any use of the information to criminally investigate or prosecute any alcohol or drug abuse patient.[facility] the event this information is protected by the Federal Confidentiality of Alcohol and Drug Abuse Patient Records regulations: The Federal rules restrict any use of the information to criminally investigate or prosecute any alcohol or drug abuse patient.[facility] the event this information is protected by the Federal Confidentiality of Alcohol and Drug Abuse Patient Records regulations: The Federal rules restrict any use of the information to criminally investigate or prosecute any alcohol or drug abuse patient.[facility] the event this information is protected by the Federal Confidentiality of Alcohol and Drug Abuse Patient Records regulations: The Federal rules restrict any use of the information to criminally investigate or prosecute any alcohol or drug abuse patient.[facility] the event this information is protected by the Federal Confidentiality of Alcohol and Drug Abuse Patient Records regulations: The Federal rules restrict any use of the information to criminally investigate or prosecute any alcohol or drug abuse patient.[facility] Reason for Visit (unrecogniz ed section and content) Reason Comments Dysuria Reason Comments leep follow up Reason Comments Well Woman Reason Comments Results Orders New Medication Reason Comments Endometrial Biopsy Specialty Diagnoses / Procedures Referred By Silvia haider Referred To Contact [facility] Diagnoses Thickened endometrium Procedures ENDOMETRIAL BIOPSY ENDOMETRIAL BX W/WO ENDOCERVIX BX W/O DILAT SPX Sheridan Niño APRN.[employer] [address] [place] [address] Phone: tel: fax: [facility] [address] [place] [address] Referral ID Status Reason Start Date Expiration Date V isits Requested Visits Authorized [id number] Closed Auto-Generate d Referral 06/22/2025 06/22/2026 1 1 INFORMATION SOURCE (unrecogn ized section and content) DATE CREATED AUTHOR 08/25/2025 [facility] DATE CREATED AUTHOR AUTHOR'S ORGANIZ ATION 08/26/2025 [facility] FOR RECORDS PERTAINING TO PATIENTS WHO ARE OR HAVE BEEN ENROLLED IN A CHEMICAL DEPENDENCY/SUBSTANCEABUSE PROGRAM, SOME INFORMATION MAY BE OMITTED. This clinical summary was aggregated from multiple sources. Caution should be exercised in using it in the provision of clinical care. This summary normalizes information from multiple sources, and as a consequence, information in this document may materially change the coding, format and clinical context of patient data. In addition, data may be omitted in some cases. CLINICAL DECISIONS SHOULD BE BASED ON THE PRIMARY CLINICAL RECORDS. [employer] provides no warranty or guarantee of the accuracy or completeness of information in this document.
[2025-09-02] MEDS: Lactated Ringers 1,000 ML 15 ML IV (06:37)
--- NOTE | 2025-09-02 06:45 | PCM.PRE.AN2 ---
ASA Classification* ASA Classification ASA Classification: 2 Assessment & Plan Anesthesia* Anesthesia Assessment Anesthesia Assessment: Discussed sedation and/or anesthesia options, risks, benefits, and alternatives with patient/parents/legal guardian/POA. Questions invited. The patient/parents/legal guardian/POA seems to understand and agrees to proceed with anesthesia plan. Reviewed the physical assessment, medical history, allergy history and patient home medications list prior to surgery/procedure/anesthetic and documented any changes. Performed airway and anesthesia risk assessments. Anesthesia Type Anesthesia Type: MAC Anesthesia Focused Assessment* Temperature: 98.4 F Pulse Rate: 75 Blood Pressure: 138/59 Respiratory Rate: 16 Pulse Ox: 96 Airway Assessment Mouth opens: >3 cm Mallampati Score: II Labs Anesthesia Preop lab: CBC WBC, (4.4-11.0) 6.7 K/mm3 08/31/25, 09:10 RBC, (4.2-5.4) 4.80 M/mm3 08/31/25, 09:10 Hgb, (12.0-15.0) 14.2 g/dL 08/31/25, 09:10 Hct, (37-47) 42.7 % 08/31/25, 09:10 Plt Count, (150-450) 325 K/mm3 08/31/25, 09:10 CHEMISTRY Potassium, (3.3-5.1) 4.2 mmol/L 08/31/25, 09:10 Sodium, (133-145) 142 mmol/L 08/31/25, 09:10 BUN, (4-19) 12 mg/dL 08/31/25, 09:10 Creatinine, (0.70-1.20) 0.55 mg/dL L 08/31/25, 09:10 Glucose, (70-99) 92 mg/dL 08/31/25, 09:10 COAG Pre-Assessment Diagnosis/Proposed Procedure Planned Operative Procedure(s): Hysteroscopy,Dilation and Curettage Anesthesia History 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 When Was Last Pacemaker Check QUESTION #4 FULL TEXT: You/Your Family Experience fever (hyperthermia) with Anesthesia Last Oral Intake Last Oral intake: Last Oral Intake NPO since 18:00 09/02/25 06:27 Meds taken in AM with sips of Yes 09/02/25 06:27 water? 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: PONV - freight car cleaner delta system Female Yes 08/26/25 13:57 HX of Motion Sickness No 08/26/25 13:57 HX of N/V After Surgery No 08/26/25 13:57 Non-Smoker Yes 08/26/25 13:57 Duration of Surgery greater No 08/26/25 13:57 than 60 minutes Number of Risk Factors 2 08/26/25 13:57 PONV Score Moderate Risk 08/26/25 13:57 Height & Weight Height & Weight: Anesthesia: Height & Weight Height 5 ft 3 in 09/02/25 06:27 Weight: 71 kg 09/02/25 06:27 Body Mass Index (BMI) 27.7 09/02/25 06:27 Respiratory Assessment Respiratory Assessment - freight car cleaner delta system: Respiratory Tract Infection Hx - freight car cleaner delta system Hx Respiratory Tract Infection No 08/26/25 13:57 STOP Sleep Apnea STOP Sleep Apnea - freight car cleaner delta system: STOP Sleep Apnea - freight car cleaner delta system Hx Hypertension No 08/26/25 13:57 Hx Sleep Apnea No 08/26/25 13:57 CPAP BIPAP Do you snore loudly (louder No 08/26/25 13:57 than talking or can be heard Do you often feel tired/ No 08/26/25 13:57 fatigued/ sleepy during daytime? Has anyone observed you stop No 08/26/25 13:57 breathing during sleep? STOP Results Negative 08/26/25 13:57 QUESTION #5 FULL TEXT : Do you snore loudly (louder than talking or can be heard through closed doors)? 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 Specify any problems Hx of Preganancy in last 3 No 08/26/25 13:57 Months Nurse Filling Out Transfusion JZOLLINGE 08/26/25 13:57 & Questions: Date: 08/26/25 08/26/25 13:57 Time: 13:58 08/26/25 13:57 Patient unable to answer at this time (ie. confused, unrespo /Reproduction History /Reproductive History - freight car cleaner delta system: /Reproductive Hx- freight car cleaner delta system Hx Now No 08/26/25 13:57 Gestational Age (in weeks): EDC: Hx Hx Para Hx Section SAB No 08/26/25 13:57 Active Medications Active Medications: Current Medications Generic Name Dose Route Start Last Admin Trade Name Freq PRN Reason Stop Dose Admin Lactated Ringer's 1,000 mls @ 15 mls/hr 09/02/25 06:15 09/02/25 06:37 IV 15 mls/hr .Q48H RUTH Administration PFSH Medical History Non-smoker Home Medications ?Medication ?Instructions ?Recorded ?Last Taken ?Type cholecalciferol (vitamin D3) 10 10 mcg PO DAILY 08/26/25 Unknown History mcg (400 unit) capsule (Vitamin D3) clindamycin phosphate 1 % lotion 1 applic topical BID 08/26/25 Unknown History dapsone 5 % topical gel 1 applic topical BID 08/26/25 Unknown History Allergy/AdvReac Type Severity Reaction Status Date / Time No Known Allergies Allergy Verified 09/02/25 06:25 Social History Smoking Status: Never smoker Review of Systems (Anesthesia) ROS Narrative System reviewed and no additional complaints, except as documented.
--- NOTE | 2025-09-02 07:18 | HP.PCM.OB_ITS ---
History and Physical Date of Admission: 09/02/25 Expand All?Collapse AllPre-Op History and Physical?HPI: The patient is a 55 year old female presenting for pre-operative visit.She is scheduled for Hysteroscopy D&C, for thickened endometrium, stenotic cervix on 09/02/25. Procedure discussed along with risks, benefits and complications. Otheralternatives discussed for management. Consent form signed? Yes. ??PAST MEDICAL HISTORYPAST MEDICAL HISTORYDiagnosisDate?Cervical high risk HPV (human papillomavirus) test vlpzbnfo32/10/2024?Ovarian cyst??Uterine fibroid? ??PAST SURGICAL HISTORYPAST SURGICAL HISTORYProcedureLateralityDate?CERVIX UTERI CONIZA LP ELCTRO EXCI?12/31/2023?COLPOSCOPY CERVIX VAG LOOP ELTRD BX CERVIX?12/22/2023?VAGI NOSCOPY?12/2023???CURRENT MEDICATIONSCurrent Outpatient MedicationsMedicationSigDispenseRefill?Dapsone 5 % gelapply to entire face IN THE MORNING and IN THE EVENING???Clindamycin Phosphate (CLEOCIN T) 1 % lotionapply to full face TWICE DAILY???cholecalciferol, vitamin D3, (VITAMIN D- 3) 10 mcg (400 unit) capTake 400 Units by mouth once daily.???Multivitamin capsuleTake 1 capsule by mouth once daily.???No current facility-administered medications for this visit.??ALLERGIES: Patient has no known allergies.?PERSONAL HISTORY: [SOCIAL HISTORY] [SOCIAL HISTORY]Social HistoryTobacco Use?Smoking status:Never?Smokeless tobacco:NeverVaping Use?Vaping status:Never UsedSubstance Use Topics?Alcohol use:Never??Comment: Rarely?Drug use:No?FAMILY HISTORY: FAMILY HISTORYFAMILY HISTORY ProblemRelationAge of Onset?other (Hypotension)Mother??other (Melanoma)Mother?? 03/2017?HypertensionFather??other (ALS)Father??MelanomaFather??other (benign uterine tumor)Sister??No Known ProblemsBrother???REVIEW OF SYMPTOMS:negative except as noted above PHYSICAL EXAMINATION:?VITALS: Blood pressure 120/72, pulse 96, height 160 cm (5' 3), weight 72.8 kg (160 lb 9.6 oz), last menstrual period 11/19/2020, SpO2 98%.?GENERAL: The patient is well nourished, well hydrated in no acute distress. , The patient is oriented to time, place, and person.NECK: full range of motionLUNGS: Clear to auscultation bilaterally. no wheezes, rhonchi or ralesHEART: Regular rate and rhythm, Normal heart sounds, and No murmurs or gallops?IMPRESSION: 55yo with thickened endometrium, Stenotic cerix ?PLAN: Hysteroscopy D&C?Pt has been counseled on risks/benefits and alternatives of surgery including but not limited to anesthesia, bleeding, infection, uterine perforation with subsequent injury to pelvic structures including bowel, bladder, ureters and vessels. Pt wishes to proceed with surgery at this time. ?Pre and post op instructions ?I have reviewed and updat
--- NOTE | 2025-09-02 07:21 | DCINST_ITS ---
Discharge Instructions DC O2, CPAP, BIPAP needs Home O2 Discharge instructions: No Dressing / Incision May resume sexual activity in: 1 week Dressing / Incision Call your doctor if you observe: Fever of 101 or Higher, Inability to urinate, Using more than 1 pad per hour and Uncontrolled pain Follow Up Care Please Follow Up With: Cecile Sainz MD When: I will call you with pathology results in 1-2 weeks, if you feel you need an appointment please call [phone] Test Results: Test results from this visit will be discussed in further detail at your follow- up appointment, if applicable. Discharge Plan Admission Attending Provider: Cecile Sainz Primary Care Provider: Care Physician,No Primary Instructions Print Language: Panamanian Discharge Orders/Prescriptions Prescriptions: No Action dapsone 5 % gel 1 applic topical BID clindamycin phosphate 1 % lotion 1 applic topical BID cholecalciferol (vitamin D3) [Vitamin D3] 10 mcg (400 unit) capsule 10 mcg PO DAILY Disposition Disposition (needs filled in before D/C Order can be placed): Home, Self Care
--- NOTE | 2025-09-02 07:22 | OP.PCM_ITS ---
Operative Report (Standard) Operative Information Date of Procedure: 09/02/25 Pre-Operative Diagnosis: Thickened Endometrium, Stenotic cervix Post-Operative Diagnosis: same, submucosal fibroid Surgery/Procedure Performed: Hysteroscopy, D&C site promotion agent: No Type of Anesthesia: MAC RN Documented Start/Stop Times: Operation Date: 09/02/25 07:30 Case Time Into Pre-Op 09/02/25 06:13 Out of Pre-Op 09/02/25 07:19 Procedure Start Time: 07:34 Procedure Stop Time: 07:56 Select all DRAINS/GRAFTS/IMPLANTS that apply: None Estimated Blood Loss: <5 Fluids Replaced: 700 Specimen collected: Yes Description of specimen(s) removed: endometrial curettings Description of surgery: After informed consent was obtained patient was taken to OR and placed in supine position. Anesthesia was given. patient was placed in yellow fin stirrups and prepped and draped in normal sterile fashion. bladder was drained with straight catheter. Weighted speculum placed in posterior fornix of vaginal, single tooth tenaculum was used to gently grasped anterior lip of cervix. Uterus was sounded to 7cm. Cervix was then gently dilated in an incremental fashion. Was adequate dilation was achieved the hysteroscope was inserted using Normal saline as the distention medium. Upon hysteroscopy there appeared to be a left anterior submucosal fibroid. Symphion hysteroscope was opened at this time. Resecting device used to perform myomectomy and obtain endometrial curettings. The tissue was then sent to pathology for examination. Uterine cavity intact, no complications. At this time procedure was deemed complete and successful. Tenaculum removed, speculum removed. Good hemostasis appreciated. Vaginal sweep was negative. Instrument and lap count correct x 2. I anticipate normal postoperative- fluid deficit 350cc Surgical Findings: Submucosal fibroid Complications Complications: No Admit VTE Documentation VTE Present on Admission: Yes VTE Mechan Device Prophylaxis: SCD's VTE Pharm Prophylaxis ordered?: No Reason prophylaxis not ordered: Treatment Not Indicated
[2025-09-02] MEDS: Lidocaine 1% (5 ml sdv) 5 ML Vial IV (07:28)
[2025-09-02] MEDS: PROPOFOL 25.38 MG IV (07:28)
--- NOTE | 2025-09-02 07:30 | EMB_PTH ---
PATIENT: FLETCHER POSEY [place] [facility] [id number] AGE/SX: 55/F ROOM: RE09/02/[address]: Dr. Cecile Sainz, MDDOB: 1970 BED: DIS: 09/02/2025 SPEC #: [id number] RECD: 09/02/25 08:57 STATUS: KEYA SHANELL #: [id number] YULIET: 09/02/25 07:[address]: Cecile Sainz DEPT: SURGICAL PATHOLOGY RECD BY: Gopi Doyle ENTERED: 09/02/25 09:47 SP TYPE: ENDOM BX/C RICHARD DR: No Primary Care Phys Tissues: A - Endometrium, NOS Procedures: Surgery Specimen Level IV HEADER OPERATION: Hysteroscopy, D&C PRE-OP DIAGNOSIS: Thickened endometrium, stenotic cervix TISSUE SUBMITTED: A- Endometrial curettings and submucosal fibroid MICROSCOPIC DIAGNOSIS A. Endometrium, curettage: * Polypoid fragments of inactive to weakly proliferative endometrium suggestive of endometrial polyp. * Fragments of benign myometrium suggestive of leiomyoma. * Fragment of benign cervical squamous mucosa. MICROSCOPIC DESCRIPTION Slides are reviewed. GROSS DESCRIPTION A. Received in formalin labeled with the patient's name and date of . Designated as submucosal fibroid endometrial curettings is a 1.8 x 1.2 x 0.3 cm aggregate of lema-pink to red rubbery tissue fragments. Entirely submitted in 1 cassette. IN 09/02/2025 CPT:[id number]
[2025-09-02] MEDS: Ketorolac 30 MG/ML Syringe IV (07:59)
--- NOTE | 2025-09-02 08:05 | PCM.POST.ANE ---
Anesthesia: Postop Eval I Current Vital Signs Temperature: 98.5 F Pulse Rate: 76 Blood Pressure: 104/65 Respiratory Rate: 18 Pulse Ox: 93 Assessment Airway patent: Yes Spontaneous unlabored respirations: Yes nausea: No Vomiting: No Anesthesia Complication: No Fluid Hydration Crystalloid volume administer (ml): 700 Total IV fluid infused: 700 Progress Note Anesthesia document: Postop Eval 1 completed: Yes
--- NOTE | 2025-09-02 10:33 | POSTOPAN2_ITS ---
Anesthesia Postop Eval I Sum Postop Eval Completion status Anesthesia document: Postop Eval 1 completed: Yes Anesthesia Postop Eval I Summary Anesthesia Postop Eval I Summary: Anesthesia Postop Eval I: Assessment Summary Airway patent Yes 09/02/25 08:05 SQL [email or web address] Spontaneous unlabored Yes 09/02/25 08:05 SQL [email or web address] respirations Mental status nausea No 09/02/25 08:05 SQL [email or web address] Vomiting No 09/02/25 08:05 SQL [email or web address] Anesthesia Postop Eval I: Fluid Summary Crystalloid volume administer 700 09/02/25 08:05 SQL [email or web address] (ml) Colloids volume administered ( ml) Blood Product volume administered (ml) Total IV fluid infused 700 09/02/25 08:05 SQL [email or web address] Anesthesia Postop Eval I: Summary Notes Anesthesia Complication No 09/02/25 08:05 SQL [email or web address] Anesthesia Complication Comment: Post-operative progress note Anesthesia: Postop Eval II Evaluation Mental status: Awake Pain Level: 0 nausea: No Vomiting: No
--- NOTE | 2025-09-02 10:33 | PCM.POSTANE2 ---
Anesthesia Postop Eval I Sum Postop Eval Completion status Anesthesia document: Postop Eval 1 completed: Yes Anesthesia Postop Eval I Summary Anesthesia Postop Eval I Summary: Anesthesia Postop Eval I: Assessment Summary Airway patent Yes 09/02/25 08:05 SENIOR [email or web address] Spontaneous unlabored Yes 09/02/25 08:05 SENIOR [email or web address] respirations Mental status nausea No 09/02/25 08:05 SENIOR [email or web address].CSIR Vomiting No 09/02/25 08:05 SENIOR [email or web address].CSIR Anesthesia Postop Eval I: Fluid Summary Crystalloid volume administer 700 09/02/25 08:05 SENIOR [email or web address].CSIR (ml) Colloids volume administered ( ml) Blood Product volume administered (ml) Total IV fluid infused 700 09/02/25 08:05 SENIOR [email or web address].CSIR Anesthesia Postop Eval I: Summary Notes Anesthesia Complication No 09/02/25 08:05 SENIOR [email or web address].CSIR Anesthesia Complication Comment: Post-operative progress note Anesthesia: Postop Eval II Evaluation Mental status: Awake Pain Level: 0 nausea: No Vomiting: No
== END 2025-09-02 09:02 | disposition home or self-care (01) ==
LOC: SDC 06:02 → AC 06:03
PROVIDERS: Referring Provider Obstetrics & Gynecology; Visit Provider Obstetrics & Gynecology
PROC: 0UDB8ZZ Extraction of Endometrium, Via Natural or Artificial Opening Endoscopic (ICD-10-PCS; CPT 58558; principal; 2025-09-02 07:15)
DX: N84.0 Polyp of corpus uteri (principal); R93.89 Abnormal findings on diagnostic imaging of other specified body structures; N88.2 Stricture and stenosis of cervix uteri; D25.0 Submucous leiomyoma of uterus
CPT/HCPCS: 58558; 00952; 36415; 80048; 85027; 88305; J2405